=== PATIENT | female | born 1980 | race American Indian/Alaskan Native ===

== ENCOUNTER 2016-09-17 09:09 | Emergency (ER) | payer OTHER, MEDICAID ==
[2016-09-17 09:36] VITALS: BP 138/78; RESP 20; TEMP 97.2; O2SAT 100
--- NOTE | 2016-09-17 09:51 | ED PDOC ---
HPI: Neurologic - General Time Seen by Provider: 09/17/16 09:26 Chief Complaint (Nursing): Weakness/Neurological Deficit Chief Complaint (Provider): Weakness/Neurological Deficit Source: patient Exam Limitations: no limitations - History of Present Illness Timing/Duration: constant Severity: mild Associated Symptoms: denies symptoms Allergies/Adverse Reactions: Allergies No Known Allergies Allergy (Verified 09/17/16 09:31) Home Medications: Ambulatory Orders Alprazolam [Xanax] PRN PRN 03/13/16 Additional Complaint(s): Patient is a 35 year old female who presents to ED for left arm numbness and pain for 1 month. Notes that this morning she woke with chest pain that has since resolved. Patient denies SOB, weakness or dizziness. Notes that if she moves a certain way she feels the numbness and pain in the arm. Patient also reports an intermittent mild headache. Denies nausea or Vomiting. no weakness or numbness in lower extremities. Past Medical History Reviewed: Historical Data, Nursing Documentation, Vital Signs Vital Signs: Last Vital Signs Temp 97.2 F L 09/17/16 09:31 Pulse 72 09/17/16 09:31 Resp 20 09/17/16 09:31 BP 138/78 09/17/16 09:31 Pulse Ox 100 09/17/16 09:31 - Medical History PMH: Anxiety - Surgical History Surgical History: - Family History Family History: States: Unknown Family Hx, Hypertension - Living Arrangements Living Arrangements: With Family - Social History Current smoker - smoking cessation education provided: No Alcohol: None Drugs: Denies - Home Medications Home Medications: Ambulatory Orders Medication Instructions Recorded Alprazolam [Xanax] PRN PRN 03/13/16 - Allergies Allergies/Adverse Reactions: Allergies Allergy/AdvReac Type Severity Reaction Status Date / Time No Known Allergies Allergy Verified 09/17/16 09:31 Review of Systems ROS Statement: Except As Marked, All Systems Reviewed And Found Negative Constitutional: Negative for: Weakness Eyes: Negative for: Vision Change Cardiovascular: Positive for: Chest Pain (resolved ). Negative for: Palpitations, Light Headedness Respiratory: Negative for: Shortness of Breath Gastrointestinal: Negative for: Nausea, Vomiting Musculoskeletal: Positive for: Arm Pain. Negative for: Neck Pain, Back Pain Skin: Negative for: Rash Neurological: Positive for: Numbness (left arm ). Negative for: Headache, Dizziness Physical Exam - Reviewed Nursing Documentation Reviewed: Yes Vital Signs Reviewed: Yes - Physical Exam Appears: Positive for: Non-toxic, No Acute Distress Skin: Positive for: Normal Color, Warm Eye Exam: Positive for: Normal appearance, PERRL Neck: Positive for: Normal, Painless ROM Cardiovascular/Chest: Positive for: Regular Rate, Rhythm, Chest Non Tender. Negative for: Murmur Respiratory: Positive for: Normal Breath Sounds. Negative for: Respiratory Distress Gastrointestinal/Abdominal: Positive for: Normal Exam Back: Positive for: Normal Inspection Extremity: Positive for: Normal ROM. Negative for: Pedal Edema, Calf Tenderness Neurologic/Psych: Positive for: Alert, roof tiler II-XII (grossly intact ), Oriented. Negative for: Motor/Sensory Deficits - Laboratory Results Result Diagrams: 09/17/16 09:57 09/17/16 09:57 - ECG ECG: Positive for: Interpreted By Me ECG Rhythm: Positive for: Normal QRS, Normal ST Segment, Sinus Rhythm. Negative for: ST/T Changes Rate: 73 O2 Sat by Pulse Oximetry: 100 (RA) Pulse Ox Interpretation: Normal Medical Decision Making Medical Decision Making: Time: 939 Initial impression: R/O ACS vs Cervical radiculopathy Initial plan: -- CT-Cervical neck -- CT-head -- CMP -- Troponin -- CBC Time: 1145 CT-cervical neck results reviewed: PROCEDURE: CT Cervical Spine without contrast HISTORY: Neck pain. COMPARISON: None available. TECHNIQUE: Axial computed tomography images were obtained of the cervical spine without the use of intravenous contrast. Coronal and sagittal reformatted images were created and reviewed. Radiation dose: Total exam DLP = 655.63 mGy-cm. This CT exam was performed using one or more of the following dose reduction techniques: Automated exposure control, adjustment of the mA and/or kV according to patient size, and/or use of iterative reconstruction technique. FINDINGS: VERTEBRAE: No fracture. Normal alignment. No destructive bony lesion. Straightening of the cervical spine which may be due to muscle spasm DISCS/SPINAL CANAL/NEURAL FORAMINA: Moderate size osteophyte disc bulging/ herniation complex seen at C5-C6 associated with spinal and neural foraminal narrowing left more than right. Discs heights are grossly preserved. PARASPINAL SOFT TISSUES: Unremarkable. OTHER FINDINGS: None. IMPRESSION: Straightening of the cervical spine which may be due to muscle spasm. Osteophyte disc herniation complex at C5-C6 associated with mild to moderate spinal and neural foraminal narrowing left more than right. If clinically warranted further assessment by MRI may be obtained. CT-head results reviewed: PROCEDURE: CT HEAD WITHOUT CONTRAST. HISTORY: l arm numbness for one month COMPARISON: None available. TECHNIQUE: Axial computed tomography images were obtained through the head/brain without intravenous contrast. Radiation dose: Total exam DLP = 899.08 mGy-cm. This CT exam was performed using one or more of the following dose reduction techniques: Automated exposure control, adjustment of the mA and/or kV according to patient size, and/or use of iterative reconstruction technique. FINDINGS: HEMORRHAGE: No intracranial hemorrhage. BRAIN: No mass effect or edema. No atrophy or chronic microvascular ischemic changes. VENTRICLES: Unremarkable. No hydrocephalus. CALVARIUM: Unremarkable. PARANASAL SINUSES: Unremarkable as visualized. No significant inflammatory changes. MASTOID AIR CELLS: Unremarkable as visualized. No inflammatory changes. OTHER FINDINGS: None. IMPRESSION: Normal CT of the Head. Time: 1150 Discussed results with patient, patient noting bilateral left pain at this time. Denies SOB. Plan: -- Duplex Time: 1330 Patient rpeorts continued pain, requesting pain medicaiton Plan: -- Percocet PO Time: 1400 Bloodwork noted to have high sugar. pt instructed to follow up with pcp for follow up. also instructed to follow up cervical neck findings- neurosurgical referral given and pt urged to follow up without fail pt instructed to return to ed with any worsening symptoms answered all questions pt wants to go home Scribe Attestation: Documented by Monika Umanzor acting as a scribe for Liliana Shaw MD. Scribe Attestation: All medical record entries made by the Scribe were at my direction and personally dictated by me. I have reviewed the chart and agree that the record accurately reflects my personal performance of the history, physical exam, medical decision making, and the department course for this patient. I have also personally directed, reviewed, and agree with the discharge instructions and disposition. Disposition - Clinical Impression Clinical Impression: Arm paresthesia, left - Patient ED Disposition Is Patient to be Admitted: No Counseled Patient/Family Regarding: Studies Performed, Diagnosis, Need For Followup - Disposition Referrals: [facility] [Outside] Jayce Mendoza MD [Staff Provider] - Disposition: Routine/Home Disposition Time: 11:30 Condition: IMPROVED Additional Instructions: follow up with NEUROSURGERY this week for evaluation of CT findings. follow up with primary doctor for elevated blood sugar return to the ED with any worsening or concerning symptoms Instructions: Cervical Disc Herniation (ED)
[2016-09-17 10:03] LABS: BASO # 0.1 K/uL (0.0-0.2); BASO % 0.9 % (0.0-2.0); EOS # 0.1 K/uL (0.0-0.7); EOS % 1.3 % (0.0-4.0); HEMATOCRIT 38.4 % (34.0-47.0); LYMPH % 16.9 % (20.0-40.0); MEAN CELL VOLUME 85.6 fl (81.0-99.0); MEAN CORPUSCULAR HEMOGLOBIN 27.8 pg (27.0-31.0); MEAN CORPUSCULAR HGB CONC 32.5 g/dL (33.0-37.0); MEAN PLATELET VOLUME 8.4 fl (7.2-11.7); MONO # 0.5 K/uL (0.0-0.8); MONO % 7.8 % (0.0-10.0); NEUT # 4.4 K/uL (1.8-7.0); NEUT % 73.1 % (50.0-75.0); RED CELL DISTRIBUTION WIDTH 13.9 % (11.5-14.5)
[2016-09-17 10:04] VITALS: PULSE 73
[2016-09-17 10:38] LABS: ALB/GLOB RATIO 1.1 (1.0-2.1); ALKALINE PHOSPHATASE 104 U/L (38-126); ALT/SGPT 28 U/L (9-52); AST/SGOT 18 U/L (14-36); BILIRUBIN,TOTAL 0.4 mg/dl (0.2-1.3); BLOOD UREA NITROGEN 13 mg/dl (7-17); CALCIUM 9.6 mg/dL (8.4-10.2); CARBON DIOXIDE 24 mmol/L (22-30); CHLORIDE 103 mmol/L (98-107); GFR AFRICAN-AMERICAN > 60; GLUCOSE,RANDOM 174 mg/dL (65-105); POTASSIUM 4.1 MMOL/L (3.6-5.0); SODIUM 138 mmol/l (132-148); TOTAL PROTEIN 7.7 G/DL (6.3-8.2)
--- NOTE | 2016-09-17 11:18 | CT ---
PROCEDURE: CT HEAD WITHOUT CONTRAST. HISTORY: l arm numbness for one month COMPARISON: None available. TECHNIQUE: Axial computed tomography images were obtained through the head/brain without intravenous contrast. Radiation dose: Total exam DLP = 899.08 mGy-cm. This CT exam was performed using one or more of the following dose reduction techniques: Automated exposure control, adjustment of the mA and/or kV according to patient size, and/or use of iterative reconstruction technique. FINDINGS: HEMORRHAGE: No intracranial hemorrhage. BRAIN: No mass effect or edema. No atrophy or chronic microvascular ischemic changes. VENTRICLES: Unremarkable. No hydrocephalus. CALVARIUM: Unremarkable. PARANASAL SINUSES: Unremarkable as visualized. No significant inflammatory changes. MASTOID AIR CELLS: Unremarkable as visualized. No inflammatory changes. OTHER FINDINGS: None. IMPRESSION: Normal CT of the Head.
--- NOTE | 2016-09-17 11:31 | CT ---
PROCEDURE: CT Cervical Spine without contrast HISTORY: Neck pain. COMPARISON: None available. TECHNIQUE: Axial computed tomography images were obtained of the cervical spine without the use of intravenous contrast. Coronal and sagittal reformatted images were created and reviewed. Radiation dose: Total exam DLP = 655.63 mGy-cm. This CT exam was performed using one or more of the following dose reduction techniques: Automated exposure control, adjustment of the mA and/or kV according to patient size, and/or use of iterative reconstruction technique. FINDINGS: VERTEBRAE: No fracture. Normal alignment. No destructive bony lesion. Straightening of the cervical spine which may be due to muscle spasm DISCS/SPINAL CANAL/NEURAL FORAMINA: Moderate size osteophyte disc bulging/ herniation complex seen at C5-C6 associated with spinal and neural foraminal narrowing left more than right. Discs heights are grossly preserved. PARASPINAL SOFT TISSUES: Unremarkable. OTHER FINDINGS: None. IMPRESSION: Straightening of the cervical spine which may be due to muscle spasm. Osteophyte disc herniation complex at C5-C6 associated with mild to moderate spinal and neural foraminal narrowing left more than right. If clinically warranted further assessment by MRI may be obtained.
[2016-09-17] MEDS ORDERED: Oxycodone/Acetaminophen 5/325 mg Tab ONE (13:27)
[2016-09-17] MEDS ORDERED: Oxycodone/Acetaminophen 5/325 mg Tab PO ONE (13:32)
--- NOTE | 2016-09-17 14:16 | US ---
PROCEDURE: Bilateral lower extremity venous duplex Doppler. HISTORY: leg pain COMPARISON: Comparison is made to the previous study dated 11/07/2014 TECHNIQUE: Bilateral common femoral, superficial femoral, popliteal and posterior tibial veins were evaluated. Flow was assessed with color Doppler, compressibility, assessment of phasic flow and augmentation response. FINDINGS: COMMON FEMORAL VEIN: Right CFV: Unremarkable. Left CFV: Unremarkable. SUPERFICIAL FEMORAL VEIN: Right SFV: Unremarkable. Left SFV: Unremarkable. POPLITEAL VEIN: Right Popliteal: Unremarkable. Left Popliteal: Unremarkable. POSTERIOR TIBIAL VEIN: Right PTV: Unremarkable. Left PTV: Unremarkable. OTHER FINDINGS: Mildly enlarged right groin lymph nodes. IMPRESSION: No evidence of deep venous thrombosis. Mildly enlarged right groin lymph nodes.
== END 2016-09-17 14:23 | disposition home or self-care (01) ==
LOC: H.ER 09:09
DX: R20.2 Paresthesia of skin (principal); R07.89 Other chest pain; F41.9 Anxiety disorder, unspecified; M50.222 Other cervical disc displacement at C5-C6 level

== ENCOUNTER 2016-10-14 13:37 | Emergency (ER) | payer OTHER, MEDICAID ==
[2016-10-14 13:42] VITALS: BP 121/70; PULSE 76; RESP 16; TEMP 98.2; O2SAT 100
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
== END 2016-10-14 16:52 | disposition home or self-care (01) ==
LOC: H.ER 13:37
DX: S13.4XXA Sprain of ligaments of cervical spine, initial encounter (principal); S20.219A Contusion of unspecified front wall of thorax, initial encounter; V43.52XA Car driver injured in collision with other type car in traffic accident, initial encounter; Y92.410 Unspecified street and highway as the place of occurrence of the external cause

== ENCOUNTER 2016-10-19 13:03 | Emergency (ER) | payer OTHER, MEDICAID ==
[2016-10-19 13:13] VITALS: BP 144/84; PULSE 88; RESP 19; TEMP 98.1; O2SAT 100
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
[2016-10-19] MEDS ORDERED: Oxycodone/Acetaminophen 5/325 mg Tab PO STA (14:58)
[2016-10-19] MEDS ORDERED: Oxycodone/Acetaminophen 5/325 mg Tab ONE (15:03)
== END 2016-10-19 15:30 | disposition home or self-care (01) ==
LOC: H.ER 13:03
DX: M54.2 Cervicalgia (principal); R20.0 Anesthesia of skin; E11.9 Type 2 diabetes mellitus without complications; F41.9 Anxiety disorder, unspecified; R20.9 Unspecified disturbances of skin sensation; M54.9 Dorsalgia, unspecified

== ENCOUNTER 2016-12-28 08:39 | Emergency (ER) | payer OTHER, MEDICAID ==
[2016-12-28 08:51] VITALS: BP 135/74; PULSE 95; TEMP 97
[2016-12-28 08:52] VITALS: BMI 31.3
[2016-12-28 08:57] VITALS: O2SAT 98
--- NOTE | 2016-12-28 11:19 | ED PDOC ---
HPI: CCC, URI, Sore Throat Time Seen by Provider: 12/28/16 09:08 Chief Complaint (Nursing): ENT Problem Chief Complaint (Provider): ENT Problem History Per: Patient History/Exam Limitations: no limitations Have you had recent travel within the past 21 days to any of the following countries: [place], [place], [place] or [place]?: Yes Onset/Duration Of Symptoms: Days (x14) Current Symptoms Are (Timing): Still Present Additional Complaint(s): Lydia Donald is a 36 year old female with a past medical history of diabetes and anxiety presenting to the ED with several medical complaints including sore throat beginning yesterday, several episodes of vomiting and diarrhea occurring upon her return from a trip to [place] and [facility] 2 weeks prior to arrival, and a bump noted to her right lateral vaginal area. The patient denies urinary symptoms, fever, back pain, rash, or vaginal pain. She is also requesting for thyroid testing. PMD: None provided Past Medical History Reviewed: Historical Data, Nursing Documentation, Vital Signs Vital Signs: Last Vital Signs Temp 97 F L 12/28/16 08:50 Pulse 95 H 12/28/16 08:50 Resp BP 135/74 12/28/16 08:50 Pulse Ox 98 12/28/16 08:55 - Medical History PMH: Anxiety, Diabetes - Surgical History Surgical History: - Family History Family History: States: Unknown Family Hx, Hypertension - Social History Current smoker - smoking cessation education provided: No Ex-Smoker (has not smoked in the last 12 months): No Alcohol: Other Drugs: Denies - Home Medications Home Medications: Ambulatory Orders Medication Instructions Recorded Alprazolam [Xanax] PRN PRN 03/13/16 Naproxen 1 tab PO BID PRN #14 tab 10/14/16 Non-Formulary 1 ea IN DAILY #1 ea 10/14/16 diaZEpam [Valium] 5 mg PO Q6 PRN #4 tab 10/14/16 Loperamide [Loperamide HCl] 2 mg PO QID PRN #12 cap 12/28/16 Mupirocin 2% Cream [Bactroban 30 applic EXT BID #1 tube 12/28/16 Cream] Ondansetron [Zofran] 4 mg PO Q6H PRN #10 tab 12/28/16 - Allergies Allergies/Adverse Reactions: Allergies Allergy/AdvReac Type Severity Reaction Status Date / Time No Known Allergies Allergy Verified 12/28/16 08:55 Review of Systems ROS Statement: Except As Marked, All Systems Reviewed And Found Negative ENT: Positive for: Throat Pain (sore throat ) Gastrointestinal: Positive for: Vomiting, Diarrhea Physical Exam - Reviewed Nursing Documentation Reviewed: Yes Vital Signs Reviewed: Yes - Physical Exam Appears: Positive for: Well, Non-toxic, No Acute Distress Head Exam: Positive for: ATRAUMATIC, NORMAL INSPECTION, NORMOCEPHALIC Skin: Positive for: Normal Color, Warm, DRY Eye Exam: Positive for: EOMI, Normal appearance, PERRL ENT: Positive for: Normal ENT Inspection, Pharynx Is (normal), TM Is/Are ( normal ) Neck: Positive for: Normal, Painless ROM Cardiovascular/Chest: Positive for: Regular Rate, Rhythm Respiratory: Positive for: CNT, Normal Breath Sounds Gastrointestinal/Abdominal: Positive for: Normal Exam, Bowel Sounds, Soft. Negative for: Tenderness Pelvic Exam: Positive for: External Exam Normal (small area foliculitis seen at 7:00 lateral to labia majora ), Other (External exam performed with [employer]) Back: Positive for: Normal Inspection Extremity: Positive for: Normal ROM Neurologic/Psych: Positive for: Alert, Oriented - ECG O2 Sat by Pulse Oximetry: 98 (RA) Pulse Ox Interpretation: Normal Medical Decision Making Medical Decision Makin:08 Impression: ENT/Female genitourinary Plan: ED urine ED urine dipstick Throat culture Rapid Strep Group Pt could not provide stool sample in ER. Recommend thyroid screening with PMD not with emergent medical condition. Throat swab resulted negative for strep. Confirmatory throat culture sent. Discussed with pt to f/u with [facility] in 4-5 days for re-evaluation for folliculitis and with PMD for thyroid testing. Scribe Attestation: Documented by Britni Flores, acting as a scribe for Foreign Gomez DO. Provider Scribe Attestation: All medical record entries made by the Scribe were at my direction and personally dictated by me. I have reviewed the chart and agree that the record accurately reflects my personal performance of the history, physical exam, medical decision making, and the department course for this patient. I have also personally directed, reviewed, and agree with the discharge instructions and disposition. Disposition - Clinical Impression Clinical Impression: Sore throat, Diarrhea, Folliculitis - Disposition Referrals: Baron Mcclendon MD [Family Provider] - Gayathri Morgan MD [Staff Provider] - Disposition: Routine/Home Disposition Time: 11:03 Condition: STABLE Additional Instructions: See [facility] doctor in 4-7 days for repeat evaluation. Use antibiotic cream 2x daily for 5 days. Bring stool sample to PMD if diarrhea persists. Return to ER for any worse or new symptoms Take medications as needed/directed. Discuss thyroid testing with your primary doctor. Prescriptions: Loperamide [Loperamide HCl] 2 mg PO QID PRN #12 cap PRN Reason: Diarrhea Mupirocin 2% Cream [Bactroban Cream] 30 applic EXT BID #1 tube Ondansetron [Zofran] 4 mg PO Q6H PRN #10 tab PRN Reason: Nausea/Vomiting Instructions: Traveler's Diarrhea (ED), Acute Nausea and Vomiting (ED), Folliculitis (ED) Forms: [facility] (Korean), [facility] ED School/Work Excuse
== END 2016-12-28 11:10 | disposition home or self-care (01) ==
LOC: H.ER 08:39
DX: L73.9 Follicular disorder, unspecified (principal); J02.9 Acute pharyngitis, unspecified; R19.7 Diarrhea, unspecified; E11.9 Type 2 diabetes mellitus without complications

== ENCOUNTER 2017-03-06 14:24 | Emergency (ER) | payer OTHER, MEDICAID ==
[2017-03-06 14:24] VITALS: BMI 31.3
[2017-03-06] MEDS ORDERED: Sodium Chloride 0.9% 1,000 ML IV STA (15:19)
--- NOTE | 2017-03-06 15:36 | ED PDOC ---
HPI:Nausea, Vomiting, Diarrhea Time Seen by Provider: 03/06/17 15:07 Chief Complaint (Nursing): GI Problem Chief Complaint (Provider): Vomiting History Per: Patient History/Exam Limitations: no limitations Onset/Duration Of Symptoms: Days (x1) Current Symptoms Are (Timing): Still Present Associated Symptoms: Chills, Vomiting Additional Complaint(s): Lydia Donald, a 36 year old female, with a past medical history of diabetes presents to the ED complaining of vomiting. The patient reports that she started vomiting around 3am after being out for the evening. She states that she was drinking and after she felt very bad. The patient reports that she barely remembers what happened but knows that she only lane one drink and is concerned that she may have been slipped something. The patient further states that she woke up around noon and continued to vomit and noticed that drops of blood mixed in with the vomitus. She reports that she currently feels dizzy, shaky and tired but cannot sleep. The patient states that her boyfriend told her that she was very aggressive and angry last night and that when she woke up this morning her pupils were dilated. PMD: Baron Calhoun Past Medical History Reviewed: Historical Data, Nursing Documentation, Vital Signs Vital Signs: Last Vital Signs Temp 98.2 F 03/06/17 14:37 Pulse 80 03/06/17 14:37 Resp 16 03/06/17 14:37 BP 167/88 H 03/06/17 14:37 Pulse Ox 100 03/06/17 14:37 - Medical History PMH: Anxiety, Diabetes - Surgical History Surgical History: - Family History Family History: States: Unknown Family Hx, Diabetes, Hypertension - Living Arrangements Living Arrangements: With Friends/Others - Social History Current smoker - smoking cessation education provided: No Ex-Smoker (has not smoked in the last 12 months): No Alcohol: Occasional Drugs: Denies - Home Medications Home Medications: Ambulatory Orders Medication Instructions Recorded Alprazolam [Xanax] PRN PRN 03/13/16 Naproxen 1 tab PO BID PRN #14 tab 10/14/16 Non-Formulary 1 ea IN DAILY #1 ea 10/14/16 diaZEpam [Valium] 5 mg PO Q6 PRN #4 tab 10/14/16 Loperamide [Loperamide HCl] 2 mg PO QID PRN #12 cap 12/28/16 Mupirocin 2% Cream [Bactroban 30 applic EXT BID #1 tube 12/28/16 Cream] Ondansetron [Zofran] 4 mg PO Q6H PRN #10 tab 12/28/16 Omeprazole Magnesium [Prilosec Otc] 20 mg PO DAILY #30 tcp 03/06/17 Ondansetron ODT [Zofran ODT] 1 odt PO Q6 PRN #20 odt 03/06/17 - Allergies Allergies/Adverse Reactions: Allergies Allergy/AdvReac Type Severity Reaction Status Date / Time No Known Allergies Allergy Verified 03/06/17 14:37 Review of Systems ROS Statement: Except As Marked, All Systems Reviewed And Found Negative (and as per HPI) Constitutional: Positive for: Weakness, Malaise, Other (shaky, tired) Gastrointestinal: Positive for: Nausea, Vomiting, Hematemesis. Negative for: Abdominal Pain Neurological: Positive for: Confusion, Dizziness Physical Exam - Reviewed Nursing Documentation Reviewed: Yes Vital Signs Reviewed: Yes - Physical Exam Appears: Positive for: Non-toxic, No Acute Distress Head Exam: Positive for: ATRAUMATIC, NORMOCEPHALIC Skin: Positive for: Warm, Dry Eye Exam: Positive for: EOMI, PERRL ENT: Positive for: Pharynx Is (clear), Other (mucus membranes moist) Neck: Positive for: Painless ROM, Supple Cardiovascular/Chest: Positive for: Regular Rate, Rhythm, Chest Non Tender. Negative for: Murmur Respiratory: Positive for: Normal Breath Sounds. Negative for: Wheezing Gastrointestinal/Abdominal: Positive for: Bowel Sounds, Soft. Negative for: Tenderness, Mass, Distended Back: Positive for: Normal Inspection. Negative for: Decreased ROM Extremity: Positive for: Normal ROM. Negative for: Deformity Lymphatic: Negative for: Adenopathy Neurologic/Psych: Positive for: Alert, metal framer II-XII (grossly intact), Oriented (x3 ), Mood/Affect (mildly anxious). Negative for: Motor/Sensory Deficits - Laboratory Results Result Diagrams: 03/06/17 15:51 03/06/17 15:51 - ECG O2 Sat by Pulse Oximetry: 100 (RA) Pulse Ox Interpretation: Normal Medical Decision Making Medical Decision Makin Initial Impression 36 y/o female presenting with vomiting and shakiness Differential: Drug intoxication, Alcohol Intoxication, Electrolyte Abnormality, Viral Syndrome, Alcoholic Gastritis, Anemia, Dehydration Initial Plan: * Type and Screen * EKG * Alcohol Serum * CMP * Drug Screen * Lipase * Magnesium * Phosphorous * Thyroid Stimulation * Upreg * Udip * CBC * Partial Thromboplastin * Prothrombin Time * NS 1000ml IV 1000mls/hr * Protonix 40mg IVP * Zofran inj 8mg IV * Dextrose 500ml IV 100mls/hr * Reevaluation 1540 EKG performed: * Normal sinus rhythm at 76bpm * Normal QRS * No ST segment abnormalities 1700 Pt feeling better. Tolerated sandwich in ER. DW pt findings and plan of care. Stable for DC home. Rest, fluids, bland diet. Scribe Attestation Documented by Rafia Miller acting as a scribe forMD. Provider Attestation All medical record entries made by the Scribe were at my direction and personally dictated by me. I have reviewed the chart and agree that the record accurately reflects my personal performance of the history, physical exam, medical decision making, and the department course for this patient. I have also personally directed, reviewed, and agree with the discharge instructions and disposition. Disposition - Clinical Impression Clinical Impression: Hematemesis Counseled Patient/Family Regarding: Studies Performed, Diagnosis, Need For Followup, Rx Given - Disposition Referrals: Baron Mcclendon MD [Family Provider] - (FOLLOW UP ON WEDNESDAY TO SEE HOW YOU ARE DOING) Disposition: Routine/Home Disposition Time: 17:00 Condition: IMPROVED Prescriptions: Omeprazole Magnesium [Prilosec Otc] 20 mg PO DAILY #30 tcp Ondansetron ODT [Zofran ODT] 1 odt PO Q6 PRN #20 odt PRN Reason: Nausea/Vomiting Instructions: Acute Nausea and Vomiting (ED), Gastritis (ED)
[2017-03-06 16:04] LABS: BASO # 0.1 K/uL (0.0-0.2); BASO % 0.9 % (0.0-2.0); EOS # 0.1 K/uL (0.0-0.7); EOS % 1.7 % (0.0-4.0); LYMPH % 16.6 % (20.0-40.0); MEAN CORPUSCULAR HEMOGLOBIN 28.3 pg (27.0-31.0); MEAN CORPUSCULAR HGB CONC 32.9 g/dL (33.0-37.0); MEAN PLATELET VOLUME 8.6 fl (7.2-11.7); MONO # 0.7 K/uL (0.0-0.8); MONO % 11.5 % (0.0-10.0); NEUT # 4.2 K/uL (1.8-7.0); NEUT % 69.3 % (50.0-75.0); NRBC % 0.3 % (0.0-0.0); RED CELL DISTRIBUTION WIDTH 14.4 % (11.5-14.5); WHITE BLOOD COUNT 6.1 K/uL (4.8-10.8)
[2017-03-06 16:29] LABS: ALB/GLOB RATIO 1.4 (1.0-2.1); ALCOHOL SERUM < 10 mg/dl (0-10); ALKALINE PHOSPHATASE 91 U/L (38-126); ALT/SGPT 46 U/L (9-52); AST/SGOT 29 U/L (14-36); BILIRUBIN,TOTAL 0.3 mg/dl (0.2-1.3); BLOOD UREA NITROGEN 9 mg/dl (7-17); CALCIUM 9.1 mg/dL (8.4-10.2); CARBON DIOXIDE 25 mmol/L (22-30); CHLORIDE 104 mmol/L (98-107); GFR AFRICAN-AMERICAN > 60; GLUCOSE,RANDOM 181 mg/dL (65-105); LIPASE 48 U/L (23-300); MAGNESIUM 1.8 MG/DL (1.6-2.3); PHOSPHOROUS 3.6 mg/dl (2.5-4.5); SODIUM 143 mmol/l (132-148); TOTAL PROTEIN 7.8 G/DL (6.3-8.2)
[2017-03-06 16:35] LABS: PARTIAL THROMBOPLASTIN TIME 26.8 Seconds (25.6-37.1)
[2017-03-06 16:59] LABS: THYROID STIMULATING HORMONE 1.22 mIU/ML (0.46-4.68)
[2017-03-06 17:49] LABS: PARTIAL THROMBOPLASTIN TIME 30.5 Seconds (25.6-37.1)
[2017-03-06 18:02] VITALS: BP 128/78; PULSE 78; RESP 19; TEMP 97; O2SAT 98
--- NOTE | 2017-03-07 08:59 | CARD ---
APPROVED REPORT EKG Measurement Heart [id number] <Conclusion> Normal sinus rhythm Nonspecific ST abnormality Abnormal ECG
== END 2017-03-06 18:02 | disposition home or self-care (01) ==
LOC: H.ER 14:24
DX: R68.83 Chills (without fever) (principal); K92.0 Hematemesis; E11.9 Type 2 diabetes mellitus without complications; Z87.891 Personal history of nicotine dependence; Z86.59 Personal history of other mental and behavioral disorders
CPT/HCPCS: 80053; 80320; 80324; 80345; 80346; 80349; 80353; 80358; 80361; 81025; 82948; 83690; 83735; 83992; 84100; 84443; 85025; 85610; 85730; 93005; 96374; 99283; C9113; J2405; J7040

== ENCOUNTER 2017-04-28 01:19 | Observation (INO) | payer OTHER, MEDICAID ==
[2017-04-28 01:19] VITALS: BMI 31.3
--- NOTE | 2017-04-28 02:53 | ED PDOC ---
HPI: Chest Pain Time Seen by Provider: 04/28/17 01:36 Chief Complaint (Nursing): Chest Pain Chief Complaint (Provider): chest pain History Per: Patient History/Exam Limitations: no limitations Onset/Duration Of Symptoms: Hrs, Sudden Onset, Persistent Current Symptoms Are (Timing): Still Present Quality: Sharp, Pressure, Squeezing Associated Symptoms: Diaphoresis. denies: Nausea, Dyspnea, Syncope Modifying Factors: None Exacerbating Factors: Deep Breathing, Exertion Alleviating Factors: Rest Additional Complaint(s): 36yo F in ED for eval of chest pain started couple of hours to arrival stats that pain is midesternal with radiation to left arm and back with diaphoresis lasting intermittent increasing in severity of pain from 4/10 to now 8/10 and longer duration form 1 mint to 5 mins with associated dizziness. PMHx: HTN no smoking. - Risk Factors PE Risk Factors: Neg: Extremity Immobilization/Fx, Decreased Mobilty /Activity, Recent Major Surgery, Recent Hospitalization, Active Cancer, Previous DVT, Previous PE, CHF, Venous Stasis, Estrogen Usage, , Post-, Recent Major Trauma TAD Risk Factors: Neg: Hypertension, Connective Tissue Disease, Marfan's Syndrome, Dea- Danlos Syndrome, Aortic Valve Disease, Active , Tumer's Syndrome, First Degree Relative With TAD, Sudden Onset Of Pain, Migration Of Pain, New Neurologic Symptoms Past Medical History Reviewed: Historical Data, Nursing Documentation, Vital Signs Vital Signs: Last Vital Signs Temp 98.0 F 04/28/17 01:31 Pulse 92 H 04/28/17 01:31 Resp 17 04/28/17 01:31 BP 146/92 H 04/28/17 01:31 Pulse Ox 99 04/28/17 03:06 - Medical History PMH: Anxiety, Diabetes - Surgical History Surgical History: - Family History Family History: States: Unknown Family Hx, Diabetes, Hypertension - Home Medications Home Medications: Ambulatory Orders Medication Instructions Recorded metFORMIN [glucOPHAGE] 500 mg PO BID 04/28/17 - Allergies Allergies/Adverse Reactions: Allergies Allergy/AdvReac Type Severity Reaction Status Date / Time No Known Allergies Allergy Verified 03/06/17 14:37 JESSICA Risk Score for UA/NSTEMI - JESSICA Risk Score Age > 64: NO 3 or more CAD Risk Factors: NO Known CAD (Stenosis greater than 50%): NO Aspirin use in past 7 days: NO Severe Angina: YES EKG ST changes greater than 0.5mm: YES Positive Cardiac Marker: NO JESSICA Score: 2 Risk %: 8% Curb-65 Severity Score - CURB-65 Severity Score Confusion: No Bun >19mg/dl (>7mmol/L): No Respiratory Rate greater than/equal to 30: No Systolic BP <90 or Diastolic BP less than/equal 60mmHg: No Age >64: No Curb-65 Score: 0 Percentage 30-day mortality: 0.6% Wells Criteria for PE - Wells Criteria for Pulmonary Embolism Clinical Signs and Symptoms of DVT: No P.E is #1 Diagnosis, or Equally Likely: No Heart Rate >100: No Immobilization at least 3 days;Surgery previous 4 weeks: No Previous, objectively diagnosed PE or DVT: No Hemoptysis: No Malignancy w/treatment within 6 months, or palliative: No Total Score: 0 Review of Systems ROS Statement: Except As Marked, All Systems Reviewed And Found Negative Cardiovascular: Positive for: Chest Pain. Negative for: Palpitations, Orthopnea , Paroxysmal Noc. Dyspnea, Edema, Light Headedness Physical Exam - Reviewed Nursing Documentation Reviewed: Yes Vital Signs Reviewed: Yes - Physical Exam Appears: Positive for: Well, Non-toxic, No Acute Distress Skin: Positive for: Normal Color, Warm, DRY Neck: Positive for: Painless ROM Cardiovascular/Chest: Positive for: Regular Rate, Rhythm, Chest Non Tender. Negative for: Edema, Gallop, JVD, Murmur, Bradycardia, Tachycardia, Ectopy, Friction Rub, Irregularly Irregular Respiratory: Positive for: CNT, Normal Breath Sounds Gastrointestinal/Abdominal: Positive for: Normal Exam, Bowel Sounds, Soft. Negative for: Tenderness Extremity: Positive for: Normal ROM Neurologic/Psych: Positive for: Alert, Oriented - Laboratory Results Result Diagrams: 04/28/17 01:36 04/28/17 01:36 - ECG ECG Rhythm: Positive for: Normal QRS, Sinus Rhythm, Nonspecific Changes O2 Sat by Pulse Oximetry: 99 - Radiology X-Ray: Interpreted by Tx X-Ray Interpretation: No Acute Disease Medical Decision Making Medical Decision Making: Pt with chest pain and will need admission for repeat labs and EKG due to risk factors. pain improved in ER from 12/24 to 10/24 and pt now more comfortable. [facility] who is covering for MD Radha 04/28/17 04/28/17 02:46 01:37 POC Glucose (mg/dL) 269 H Urine Color Straw Urine Clarity Slighty-cloudy Urine pH 6.0 Ur Specific [place] < 1.005 Urine Protein Negative Urine Glucose (UA) 50 Urine Ketones Negative Urine Blood Negative Urine Nitrate Negative Urine Bilirubin Negative Urine Urobilinogen 0.2-1.0 Ur Leukocyte Esterase Neg Urine RBC (Auto) 1 Urine Microscopic WBC 2 Ur Squamous Epith Cells 6 H Urine Bacteria Rare Disposition - Clinical Impression Clinical Impression: Chest pain - Patient ED Disposition Is Patient to be Admitted: Yes - Disposition Referrals: Baron Mcclendon MD [Primary Care Provider] - Disposition Time: 03:50 Condition: STABLE Forms: [employer] (Bahamian) - Pt Status Changed To: Hospital Disposition Of: Observation
[2017-04-28 02:59] LABS: RBC URINE 1 /hpf (0-3); URINE BACTERIA RARE (<OCC); URINE BILIRUBIN NEGATIVE (NEGATIVE); URINE BLOOD NEGATIVE (NEGATIVE); URINE COLOR STRAW (YELLOW); URINE GLUCOSE (UA) 50 mg/dL (Normal); URINE KETONE NEGATIVE (NEGATIVE); URINE LEUKOCYTE ESTERASE NEG Leu/uL (Negative); URINE PROTEIN NEGATIVE (NEGATIVE); URINE UROBILINOGEN 0.2-1.0 mg/dL (0.2-1.0); WBC URINE 2 /hpf (0-5)
[2017-04-28 03:24] LABS: BASO # 0.1 K/uL (0.0-0.2); BASO % 1.1 % (0.0-2.0); EOS # 0.1 K/uL (0.0-0.7); EOS % 1.5 % (0.0-4.0); HEMATOCRIT 36.5 % (34.0-47.0); LYMPH # 0.7 K/uL (1.0-4.3); MEAN CELL VOLUME 85.6 fl (81.0-99.0); MEAN CORPUSCULAR HEMOGLOBIN 28.1 pg (27.0-31.0); MEAN CORPUSCULAR HGB CONC 32.8 g/dL (33.0-37.0); MEAN PLATELET VOLUME 9.1 fl (7.2-11.7); MONO # 0.3 K/uL (0.0-0.8); MONO % 6.3 % (0.0-10.0); NEUT # 3.4 K/uL (1.8-7.0); NEUT % 75.1 % (50.0-75.0); NRBC % 0.1 % (0.0-0.0); WHITE BLOOD COUNT 4.5 K/uL (4.8-10.8)
[2017-04-28 03:31] LABS: ALB/GLOB RATIO 1.3 (1.0-2.1); ALKALINE PHOSPHATASE 90 U/L (38-126); ALT/SGPT 68 U/L (9-52); AST/SGOT 40 U/L (14-36); BILIRUBIN,TOTAL 0.4 mg/dl (0.2-1.3); BLOOD UREA NITROGEN 15 mg/dl (7-17); CALCIUM 8.8 mg/dL (8.4-10.2); CARBON DIOXIDE 21 mmol/L (22-30); CHLORIDE 105 mmol/L (98-107); GFR AFRICAN-AMERICAN > 60; GLUCOSE,RANDOM 231 mg/dL (65-105); POTASSIUM 3.7 MMOL/L (3.6-5.0); SODIUM 137 mmol/l (132-148); TOTAL PROTEIN 7.2 G/DL (6.3-8.2)
--- NOTE | 2017-04-28 05:02 | CP.PCM.HP ---
<Laurel Mayers - Last Filed: 04/28/17 05:26> History of Present Illness - History of Present Illness History of Present Illness: 36 year old female with PMH of prediabetes and anxiety presented with complaints of chest pain, tightness, and pressure that began around 18:00. She has never had symptoms like this in the past. She does not think that his is reflux or anxiety because 'she know's what that feel's like.' Pain was described as chest tightness and cramping sensation, followed by pressure and dyspnea. Also with subsequent back pain. She denies recent illness or travel. She was brought to the ED by her boyfriend. She was given sublingual nitroglycerin with mild improvement of her symptoms. No history of heart disease, [place], CVA, HLD, HTN, thyroid disease, esophageal spasm. ROS: She denies fevers, chills, headaches, dizziness, nausea, vomiting, diarrhea , constipation, pedal edema. PMH: Prediabetes, anxiety Medications: Metformin 500mg PO BID, xanax PRN Allergies: NKDA Social Hx: no tobacco use, +etoh use Surgical Hx: ankle surgery, x 1 TACK WELDER: LMP: 04/02/17, no OCPs Family Hx: mother w/ heart murmur Present on Admission - Present on Admission Any Indicators Present on Admission: No Past Patient History - Infectious Disease Hx of Infectious Diseases: None - Past Social History Smoking Status: Never Smoked Alcohol: Social Drugs: Denies - ENDOCRINE/METABOLIC Hx Endocrine Disorders: Yes - PSYCHIATRIC Hx Anxiety: Yes - SURGICAL HISTORY Hx Surgeries: Yes Hx Section: Yes Other/Comment: left foot - ANESTHESIA Hx Anesthesia: Yes Hx Anesthesia Reactions: No Meds Allergies/Adverse Reactions: Allergies Allergy/AdvReac Type Severity Reaction Status Date / Time No Known Allergies Allergy Verified 03/06/17 14:37 Physical Exam - Constitutional Appears: Non-toxic, No Acute Distress - Head Exam Head Exam: ATRAUMATIC, NORMAL INSPECTION, NORMOCEPHALIC - Eye Exam Eye Exam: EOMI, Normal appearance, PERRL - ENT Exam ENT Exam: Mucous Membranes Moist, Normal Exam - Neck Exam Neck exam: Positive for: Thyromegaly - Respiratory Exam Respiratory Exam: Clear to Auscultation Bilateral, NORMAL BREATHING PATTERN. absent: Accessory Muscle Use, Prolonged Expiratory Phase, Rales, Rhonchi, Wheezes - Cardiovascular Exam Cardiovascular Exam: REGULAR RHYTHM, +S1, +S2. absent: Bradycardia, Tachycardia - GI/Abdominal Exam GI & Abdominal Exam: Distended, Normal Bowel Sounds, Soft. absent: Guarding, Tenderness - Extremities Exam Extremities exam: Positive for: normal inspection, tenderness. Negative for: pedal edema - Back Exam Back exam: NORMAL INSPECTION - Neurological Exam Neurological exam: Alert, CN II-XII Intact, Oriented x3 - Psychiatric Exam Psychiatric exam: Anxious - Skin Skin Exam: Dry, Intact, Normal Color, Warm Results - Vital Signs Recent Vital Signs: Last Vital Signs Temp 98.3 F 04/28/17 04:42 Pulse 87 04/28/17 04:42 Resp 16 04/28/17 04:42 BP 132/83 04/28/17 04:42 Pulse Ox 100 04/28/17 04:42 - Labs Result Diagrams: 04/28/17 01:36 04/28/17 01:36 Labs: Laboratory Results - last 24 hr 04/28/17 04/28/17 04/28/17 01:36 01:36 01:37 WBC 4.5 L RBC 4.26 Hgb 12.0 Hct 36.5 MCV 85.6 MCH 28.1 MCHC 32.8 L RDW 14.0 Plt Count 190 MPV 9.1 Neut % (Auto) 75.1 H Lymph % (Auto) 16.0 L [place] % (Auto) 6.3 Eos % (Auto) 1.5 Baso % (Auto) 1.1 Neut # 3.4 Lymph # 0.7 L [place] # 0.3 Eos # 0.1 Baso # 0.1 Sodium 137 Potassium 3.7 Chloride 105 Carbon Dioxide 21 L Anion Gap 15 BUN 15 Creatinine 0.5 L Est GFR ( Amer) > 60 Est GFR (Non-Af Amer) > 60 POC Glucose (mg/dL) 269 H Random Glucose 231 H Calcium 8.8 Total Bilirubin 0.4 AST 40 H D ALT 68 H D Alkaline Phosphatase 90 Troponin I < 0.0120 Total Protein 7.2 Albumin 4.0 Globulin 3.2 Albumin/Globulin Ratio 1.3 Urine Color Urine Clarity Urine pH Ur Specific Dixon Urine Protein Urine Glucose (UA) Urine Ketones Urine Blood Urine Nitrate Urine Bilirubin Urine Urobilinogen Ur Leukocyte Esterase Urine RBC (Auto) Urine Microscopic WBC Ur Squamous Epith Cells Urine Bacteria 04/28/17 02:46 WBC RBC Hgb Hct MCV MCH MCHC RDW Plt Count MPV Neut % (Auto) Lymph % (Auto) Raw[place]ins % (Auto) Eos % (Auto) Baso % (Auto) Neut # Lymph # Raw[place]ins # Eos # Baso # Sodium Potassium Chloride Carbon Dioxide Anion Gap BUN Creatinine Est GFR ( Amer) Est GFR (Non-Af Amer) POC Glucose (mg/dL) Random Glucose Calcium Total Bilirubin AST ALT Alkaline Phosphatase Troponin I Total Protein Albumin Globulin Albumin/Globulin Ratio Urine Color Straw Urine Clarity Slighty-cloudy Urine pH 6.0 Ur Specific Dixon < 1.005 Urine Protein Negative Urine Glucose (UA) 50 Urine Ketones Negative Urine Blood Negative Urine Nitrate Negative Urine Bilirubin Negative Urine Urobilinogen 0.2-1.0 Ur Leukocyte Esterase Neg Urine RBC (Auto) 1 Urine Microscopic WBC 2 Ur Squamous Epith Cells 6 H Urine Bacteria Rare Assessment & Plan (1) Chest pain Assessment and Plan: 36 year old female presented with chest pain, tightness and pressure admitted for rule out ACS. No longer tachycardic, BP WNL. EKG reviewed, Troponin negative x 1. no recent travel, prolonged immobilization, or recent surgery, rule out PE admit to telemetry for cardiac monitoring, will repeat troponins and ordered d- dimer, lipid panel, hga1c and TSH Status: Acute (2) Prediabetes Assessment and Plan: pt w/ hyperglycemia, hga1c ordered continue with metformin 500mg bid Status: Chronic (3) Transaminitis Assessment and Plan: unknown etiology, can follow as outpatient Status: Acute (4) Obesity Status: Chronic <Baron Mcclendon - Last Filed: 04/28/17 07:08> Results - Vital Signs Recent Vital Signs: Last Vital Signs Temp 98.3 F 04/28/17 05:00 Pulse 87 04/28/17 05:12 Resp 12 04/28/17 05:12 BP 120/74 04/28/17 05:00 Pulse Ox 99 04/28/17 05:12 - Labs Result Diagrams: 04/28/17 01:36 04/28/17 01:36 Labs: Laboratory Results - last 24 hr 04/28/17 04/28/17 04/28/17 01:36 01:36 01:37 WBC 4.5 L RBC 4.26 Hgb 12.0 Hct 36.5 MCV 85.6 MCH 28.1 MCHC 32.8 L RDW 14.0 Plt Count 190 MPV 9.1 Neut % (Auto) 75.1 H Lymph % (Auto) 16.0 L Raw[place] % (Auto) 6.3 Eos % (Auto) 1.5 Baso % (Auto) 1.1 Neut # 3.4 Lymph # 0.7 L Raw[place]ins # 0.3 Eos # 0.1 Baso # 0.1 Sodium 137 Potassium 3.7 Chloride 105 Carbon Dioxide 21 L Anion Gap 15 BUN 15 Creatinine 0.5 L Est GFR ( Amer) > 60 Est GFR (Non-Af Amer) > 60 POC Glucose (mg/dL) 269 H Random Glucose 231 H Calcium 8.8 Total Bilirubin 0.4 AST 40 H D ALT 68 H D Alkaline Phosphatase 90 Troponin I < 0.0120 Total Protein 7.2 Albumin 4.0 Globulin 3.2 Albumin/Globulin Ratio 1.3 Urine Color Urine Clarity Urine pH Ur Specific Dixon Urine Protein Urine Glucose (UA) Urine Ketones Urine Blood Urine Nitrate Urine Bilirubin Urine Urobilinogen Ur Leukocyte Esterase Urine RBC (Auto) Urine Microscopic WBC Ur Squamous Epith Cells Urine Bacteria 04/28/17 04/28/17 02:46 05:27 WBC RBC Hgb Hct MCV MCH MCHC RDW Plt Count MPV Neut % (Auto) Lymph % (Auto) Rawlins % (Auto) Eos % (Auto) Baso % (Auto) Neut # Lymph # Raw[place]ins # Eos # Baso # Sodium Potassium Chloride Carbon Dioxide Anion Gap BUN Creatinine Est GFR ( Amer) Est GFR (Non-Af Amer) POC Glucose (mg/dL) 197 H Random Glucose Calcium Total Bilirubin AST ALT Alkaline Phosphatase Troponin I Total Protein Albumin Globulin Albumin/Globulin Ratio Urine Color Straw Urine Clarity Slighty-cloudy Urine pH 6.0 Ur Specific Dixon < 1.005 Urine Protein Negative Urine Glucose (UA) 50 Urine Ketones Negative Urine Blood Negative Urine Nitrate Negative Urine Bilirubin Negative Urine Urobilinogen 0.2-1.0 Ur Leukocyte Esterase Neg Urine RBC (Auto) 1 Urine Microscopic WBC 2 Ur Squamous Epith Cells 6 H Urine Bacteria Rare Attending/Attestation - Attestation I have personally seen and examined this patient.: Yes I have fully participated in the care of the patient.: Yes I have reviewed all pertinent clinical information: Yes
[2017-04-28] MEDS: Enoxaparin 40 mg Syringe SC SCH (08:18)
--- NOTE | 2017-04-28 08:19 | RAD ---
PROCEDURE: CHEST RADIOGRAPH, 1 VIEW HISTORY: cp COMPARISON: Chest radiographs 10/14/2016. FINDINGS: LUNGS: No acute infiltrate bilaterally. PLEURA: No pneumothorax or pleural fluid seen. CARDIOVASCULAR: Normal. OSSEOUS STRUCTURES: No significant abnormalities. VISUALIZED UPPER ABDOMEN: Normal. OTHER FINDINGS: None. IMPRESSION: No interval acute cardiopulmonary disease appreciated. Stable
[2017-04-28 09:32] LABS: CHOLESTEROL 143 mg/dL (0-199)
--- NOTE | 2017-04-28 15:38 | US ---
PROCEDURE: Right lower extremity duplex venous sonography. HISTORY: right calf pain and chest pain COMPARISON: None available. TECHNIQUE: Common femoral, superficial femoral, popliteal and posterior tibial veins were evaluated. Flow was assessed with color Doppler, compressibility, assessment of phasic flow and augmentation response. FINDINGS: COMMON FEMORAL VEIN: Unremarkable. SUPERFICIAL FEMORAL VEIN: Unremarkable. POPLITEAL VEIN: Unremarkable. POSTERIOR TIBIAL VEIN: Unremarkable. OTHER FINDINGS: None. IMPRESSION: No evidence of deep venous thrombosis in the right lower extremity.
--- NOTE | 2017-04-28 23:45 | CARD ---
APPROVED REPORT EKG Measurement Heart [id number] <Conclusion> Normal sinus rhythm with sinus arrhythmia ST elevation, consider early repolarization, pericarditis, or injury Nonspecific ST and T wave abnormality Abnormal ECG
[2017-04-29 00:14] VITALS: RESP 18
[2017-04-29 08:01] VITALS: O2SAT 99
[2017-04-29] MEDS: Enoxaparin 40 mg Syringe SC SCH (09:16)
--- NOTE | 2017-04-29 09:35 | CP.PCM.CON ---
History of Present Illness - History of Present Illness History of Present Illness: This 36-year- old -[place] female abruptly developed a sharp left pectoral pain while working at home on Wednesday evening and kept on coming back and finally she came to the emergency room approximately 4-5 hours later. The pain persisted 10-15 hours even after her admission. This pain is not connected to any body movements or physical activity. It does not radiate into her jaw on her arms. It was not accompanied by any perspiration nausea vomiting or palpitations of sudden shortness of breath. The patient has been on anti-diabetic medications for a year and admits to having gained approximately 70 pounds over last 4-5 years. She used to be a smoker for 3 years and finally quit 17 years back. She is not a hypertensive and has no prior history of coronary artery disease or myocardial infarction. Her mother was a diabetic and had intermittent chest pain but a tien myocardial infarction was not diagnosed. The patient also gives history of having had heartburn in the past and gives history of having panic disorder. Physical examination shows a moderately overweight -[place] female who is quite anxious and being hospitalized. She is alert awake oriented and afebrile and can carry on a conversation. Her respiratory rate was 14-16 breaths per minute and her heart rate was 64 bpm and regular. Her blood pressure was 114/70 mmHg. Her jugular venous pressure was not elevated and there was no edema over her lower extremity. Her pedal pulses are well felt. Hydrin breast did not reveal anything abnormal. Her extremities were warm and the nailbeds are pink. There was no central or peripheral cyanosis. The apex was not palpable. First and second heart sounds were normal. There was no gallop and there were no murmurs. Abdomen was soft liver and spleen were not palpable. There was no area of tenderness in the precordium. Her electrocardiogram taken 3 times showed sinus rhythm with no evidence of ischemic ST-T changes or Q waves. Cardiac enzymes of 10 38 hours apart did not show any evidence of myocyte injury. Her lipid profile was quite unremarkable. Her liver profile showed mildly elevated AST and AST. Her BUN/creatinine were normal and her sodium potassium levels were normal as well. Impression: Atypical chest pain with no evidence of acute coronary syndrome. Chronic exogenous obesity and type 2 diabetes mellitus. History of heartburn and anxiety disorder. The patient may be allowed to return home and continue management and evaluation of her symptoms as an outpatient. I have explained the benign nature of her symptoms to her. Past Patient History - Infectious Disease Hx of Infectious Diseases: None - Past Medical History & Family History Past Medical History?: Yes - Past Social History Smoking Status: Never Smoked Alcohol: Social Drugs: Denies - CARDIAC Hx Cardiac Disorders: No - PULMONARY Hx Respiratory Disorders: No - NEUROLOGICAL Hx Neurological Disorder: No - HEENT Hx HEENT Problems: No - RENAL Hx Chronic Kidney Disease: No - ENDOCRINE/METABOLIC Hx Endocrine Disorders: Yes - HEMATOLOGICAL/ONCOLOGICAL Hx Blood Disorders: No Hx AIDS: No Hx Human Immunodeficiency Virus (HIV): No - INTEGUMENTARY Hx Dermatological Problems: No - MUSCULOSKELETAL/RHEUMATOLOGICAL Hx Musculoskeletal Disorders: No Hx Falls: No - GASTROINTESTINAL Hx Gastrointestinal Disorders: No - GENITOURINARY/GYNECOLOGICAL Hx Genitourinary Disorders: No - PSYCHIATRIC Hx Anxiety: Yes - SURGICAL HISTORY Hx Surgeries: Yes Hx Section: Yes Other/Comment: left foot - ANESTHESIA Hx Anesthesia: Yes Hx Anesthesia Reactions: No Meds Allergies/Adverse Reactions: Allergies Allergy/AdvReac Type Severity Reaction Status Date / Time No Known Allergies Allergy Verified 03/06/17 14:37 - Medications Medications: Current Medications Acetaminophen (Tylenol 325mg Tab) 650 mg PO Q6 PRN PRN Reason: Pain, Mild (1-3) Last Admin: 04/28/17 08:20 Dose: 650 mg Enoxaparin Sodium (Lovenox) 40 mg SC DAILY [facility] PRN Reason: Protocol Last Admin: 04/29/17 09:16 Dose: 40 mg Famotidine (Pepcid) 20 mg PO BID [facility] Last Admin: 04/29/17 09:15 Dose: 20 mg Ketorolac Tromethamine (Toradol) 30 mg IVP Q6 PRN PRN Reason: Pain, moderate (4-7) Last Admin: 04/28/17 16:49 Dose: 30 mg Metformin HCl (Glucophage) 500 mg PO BID [facility] Last Admin: 04/29/17 09:16 Dose: 500 mg Results - Vital Signs Recent Vital Signs: Last Vital Signs Temp 98.0 F 04/29/17 08:00 Pulse 76 04/29/17 08:00 Resp 18 04/29/17 08:00 BP 105/64 04/29/17 08:00 Pulse Ox 99 04/29/17 08:00 - Labs Result Diagrams: 04/28/17 01:36 04/28/17 01:36 Labs: Laboratory Results - last 24 hr 04/28/17 04/28/17 04/28/17 08:50 08:50 08:50 D-Dimer, Quantitative POC Glucose (mg/dL) Hemoglobin A1c 9.6 H Troponin I < 0.0120 Triglycerides 89 Cholesterol 143 LDL Cholesterol Direct 94 HDL Cholesterol 37 Free T4 1.06 TSH 3rd Generation 1.20 Urine Opiates Screen Urine Methadone Screen Ur Barbiturates Screen Ur Phencyclidine Scrn Ur Amphetamines Screen U Benzodiazepines Scrn U Oth Cocaine Metabols U Cannabinoids Screen 04/28/17 04/28/17 04/28/17 08:50 11:22 14:00 D-Dimer, Quantitative 203 POC Glucose (mg/dL) 273 H Hemoglobin A1c Troponin I Triglycerides Cholesterol LDL Cholesterol Direct HDL Cholesterol Free T4 TSH 3rd Generation Urine Opiates Screen Negative Urine Methadone Screen Negative Ur Barbiturates Screen Negative Ur Phencyclidine Scrn Negative Ur Amphetamines Screen Negative U Benzodiazepines Scrn Negative U Oth Cocaine Metabols Negative U Cannabinoids Screen Negative 04/28/17 04/28/17 04/28/17 15:43 17:09 21:14 D-Dimer, Quantitative POC Glucose (mg/dL) 221 H 197 H Hemoglobin A1c Troponin I < 0.0120 Triglycerides Cholesterol LDL Cholesterol Direct HDL Cholesterol Free T4 TSH 3rd Generation Urine Opiates Screen Urine Methadone Screen Ur Barbiturates Screen Ur Phencyclidine Scrn Ur Amphetamines Screen U Benzodiazepines Scrn U Oth Cocaine Metabols U Cannabinoids Screen 04/29/17 05:29 D-Dimer, Quantitative POC Glucose (mg/dL) 173 H Hemoglobin A1c Troponin I Triglycerides Cholesterol LDL Cholesterol Direct HDL Cholesterol Free T4 TSH 3rd Generation Urine Opiates Screen Urine Methadone Screen Ur Barbiturates Screen Ur Phencyclidine Scrn Ur Amphetamines Screen U Benzodiazepines Scrn U Oth Cocaine Metabols U Cannabinoids Screen
--- NOTE | 2017-04-29 10:26 | CP.PCM.DIS ---
<Trevor Kellogg - Last Filed: 04/29/17 10:36> Provider - Provider Date of Admission: 04/28/17 11:57 Attending physician: Baron Townsend MD Primary care physician: Baron Townsend MD Time Spent in preparation of Discharge (in minutes): 30 Diagnosis - Discharge Diagnosis (1) Chest pain Status: Acute (2) Obesity Status: Chronic (3) Anxiety Status: Chronic Hospital Course - Lab Results Lab Results: Most Recent Lab Values WBC 4.5 K/uL (4.8-10.8) L 04/28/17 01:36 RBC 4.26 Mil/uL (3.80-5.20) 04/28/17 01:36 Hgb 12.0 g/dL (12.0-16.0) 04/28/17 01:36 Hct 36.5 % (34.0-47.0) 04/28/17 01:36 MCV 85.6 fl (81.0-99.0) 04/28/17 01:36 MCH 28.1 pg (27.0-31.0) 04/28/17 01:36 MCHC 32.8 g/dL (33.0-37.0) L 04/28/17 01:36 RDW 14.0 % (11.5-14.5) 04/28/17 01:36 Plt Count 190 K/uL (130-400) 04/28/17 01:36 MPV 9.1 fl (7.2-11.7) 04/28/17 01:36 Neut % (Auto) 75.1 % (50.0-75.0) H 04/28/17 01:36 Lymph % (Auto) 16.0 % (20.0-40.0) L 04/28/17 01:36 [place] % (Auto) 6.3 % (0.0-10.0) 04/28/17 01:36 Eos % (Auto) 1.5 % (0.0-4.0) 04/28/17 01:36 Baso % (Auto) 1.1 % (0.0-2.0) 04/28/17 01:36 Neut # 3.4 K/uL (1.8-7.0) 04/28/17 01:36 Lymph # 0.7 K/uL (1.0-4.3) L 04/28/17 01:36 [place] # 0.3 K/uL (0.0-0.8) 04/28/17 01:36 Eos # 0.1 K/uL (0.0-0.7) 04/28/17 01:36 Baso # 0.1 K/uL (0.0-0.2) 04/28/17 01:36 D-Dimer, Quantitative 203 ng/mlDDU (0-230) 04/28/17 08:50 Sodium 137 mmol/l (132-148) 04/28/17 01:36 Potassium 3.7 MMOL/L (3.6-5.0) 04/28/17 01:36 Chloride 105 mmol/L (98-107) 04/28/17 01:36 Carbon Dioxide 21 mmol/L (22-30) L 04/28/17 01:36 Anion Gap 15 (10-20) 04/28/17 01:36 BUN 15 mg/dl (7-17) 04/28/17 01:36 Creatinine 0.5 mg/dl (0.7-1.2) L 04/28/17 01:36 Est GFR ( Amer) > 60 04/28/17 01:36 Est GFR (Non-Af Amer) > 60 04/28/17 01:36 POC Glucose (mg/dL) 173 mg/dL (65-110) H 04/29/17 05:29 Random Glucose 231 mg/dL (65-105) H 04/28/17 01:36 Hemoglobin A1c 9.6 % (4.2-6.5) H 04/28/17 08:50 Calcium 8.8 mg/dL (8.4-10.2) 04/28/17 01:36 Total Bilirubin 0.4 mg/dl (0.2-1.3) 04/28/17 01:36 AST 40 U/L (14-36) H D 04/28/17 01:36 ALT 68 U/L (9-52) H D 04/28/17 01:36 Alkaline Phosphatase 90 U/L (38-126) 04/28/17 01:36 Troponin I < 0.0120 ng/mL (0.00-0.120) 04/28/17 17:09 Total Protein 7.2 G/DL (6.3-8.2) 04/28/17 01:36 Albumin 4.0 g/dL (3.5-5.0) 04/28/17 01:36 Globulin 3.2 gm/dL (2.2-3.9) 04/28/17 01:36 Albumin/Globulin Ratio 1.3 (1.0-2.1) 04/28/17 01:36 Triglycerides 89 mg/DL (0-149) 04/28/17 08:50 Cholesterol 143 mg/dL (0-199) 04/28/17 08:50 LDL Cholesterol Direct 94 mg/dL (0-129) 04/28/17 08:50 HDL Cholesterol 37 MG/DL (30-70) 04/28/17 08:50 Free T4 1.06 ng/dL (0.78-2.19) 04/28/17 08:50 TSH 3rd Generation 1.20 mIU/ML (0.46-4.68) 04/28/17 08:50 Urine Color Straw (YELLOW) 04/28/17 02:46 Urine Clarity Slighty-cloudy (Clear) 04/28/17 02:46 Urine pH 6.0 (5.0-8.0) 04/28/17 02:46 Ur Specific Polaris < 1.005 (1.003-1.030) 04/28/17 02:46 Urine Protein Negative mg/dL (NEGATIVE) 04/28/17 02:46 Urine Glucose (UA) 50 mg/dL (Normal) 04/28/17 02:46 Urine Ketones Negative mg/dL (NEGATIVE) 04/28/17 02:46 Urine Blood Negative (NEGATIVE) 04/28/17 02:46 Urine Nitrate Negative (NEGATIVE) 04/28/17 02:46 Urine Bilirubin Negative (NEGATIVE) 04/28/17 02:46 Urine Urobilinogen 0.2-1.0 mg/dL (0.2-1.0) 04/28/17 02:46 Ur Leukocyte Esterase Neg Nicole/uL (Negative) 04/28/17 02:46 Urine RBC (Auto) 1 /hpf (0-3) 04/28/17 02:46 Urine Microscopic WBC 2 /hpf (0-5) 04/28/17 02:46 Ur Squamous Epith Cells 6 /hpf (0-5) H 04/28/17 02:46 Urine Bacteria Rare (<OCC) 04/28/17 02:46 Urine Opiates Screen Negative (NEGATIVE) 04/28/17 14:00 Urine Methadone Screen Negative (NEGATIVE) 04/28/17 14:00 Ur Barbiturates Screen Negative (NEGATIVE) 04/28/17 14:00 Ur Phencyclidine Scrn Negative (NEGATIVE) 04/28/17 14:00 Ur Amphetamines Screen Negative (NEGATIVE) 04/28/17 14:00 U Benzodiazepines Scrn Negative (NEGATIVE) 04/28/17 14:00 U Oth Cocaine Metabols Negative (NEGATIVE) 04/28/17 14:00 U Cannabinoids Screen Negative (NEGATIVE) 04/28/17 14:00 - Hospital Course Hospital Course: 36 YO obese female with a history of anxiety was admitted for chest pain. She was worked up thoroughly: - Troponin x 3 negative - Repeat EKG : No signs of acute event. In initial EKG non specific ST wave changes were seen, however on repeat no acute changes were noted. - Patient has a heart score of 1 - Cardiology consulted: Cleared by cardiology - Right lower extremity U/S: negative: since patient was complaining of pain there - HBA1C: 9.6. Patient states she does not take her medication regularly. Have emphasized the importance of taking medication regularly. - Denies any suicidal or homicidal ideation - On discharge patient denies any chest pain, palpitations, SOB, nausea, vomiting, dizziness. - Encouraged on relaxation exercises. - Patient follow up with psychiatrist outpatient: Advised to follow up - Continue home meds - F/U with Dr. Townsend within 1 week of discharge. Discharge Exam - Head Exam Head Exam: ATRAUMATIC, NORMAL INSPECTION, NORMOCEPHALIC - Eye Exam Eye Exam: Normal appearance - Respiratory Exam Respiratory Exam: Clear to PA & Lateral, NORMAL BREATHING PATTERN - Cardiovascular Exam Cardiovascular Exam: REGULAR RHYTHM, RRR, +S1, +S2 - GI/Abdominal Exam GI & Abdominal Exam: Normal Bowel Sounds, Soft. absent: Tenderness Additional comments: obese - Extremities Exam Extremities exam: normal inspection - Back Exam Back exam: absent: CVA tenderness (L), CVA tenderness (R) - Neurological Exam Neurological exam: Alert, CN II-XII Intact, Normal Gait, Oriented x3 - Skin Skin Exam: Normal Color, Warm Discharge Plan - Follow Up Plan Condition: GOOD Disposition: HOME/ ROUTINE Instructions: Chest Pain (DC) Additional Instructions: - Patient has been worked up thoroughly, Troponins x 3 negative, Repeat EKG no acute abnormalities shown. - Patients HBA1c shows uncontrolled diabetes HBA1c: 9.6, patient admits to not being complient. Encouraged to take daily - follow up with PMD within 1 week after discharge. - Follow up w/ psychiatrist in 1 week - If symptoms return or worsen please return to the ER Referrals: Baron Townsend MD [Primary Care Provider] - <Tom Cast - Last Filed: 04/30/17 06:54> Provider - Provider Date of Admission: 04/28/17 03:48 Attending physician: Baron Townsend MD Primary care physician: Baron Townsend MD Hospital Course - Lab Results Lab Results: Most Recent Lab Values WBC 4.5 K/uL (4.8-10.8) L 04/28/17 01:36 RBC 4.26 Mil/uL (3.80-5.20) 04/28/17 01:36 Hgb 12.0 g/dL (12.0-16.0) 04/28/17 01:36 Hct 36.5 % (34.0-47.0) 04/28/17 01:36 MCV 85.6 fl (81.0-99.0) 04/28/17 01:36 MCH 28.1 pg (27.0-31.0) 04/28/17 01:36 MCHC 32.8 g/dL (33.0-37.0) L 04/28/17 01:36 RDW 14.0 % (11.5-14.5) 04/28/17 01:36 Plt Count 190 K/uL (130-400) 04/28/17 01:36 MPV 9.1 fl (7.2-11.7) 04/28/17 01:36 Neut % (Auto) 75.1 % (50.0-75.0) H 04/28/17 01:36 Lymph % (Auto) 16.0 % (20.0-40.0) L 04/28/17 01:36 [place] % (Auto) 6.3 % (0.0-10.0) 04/28/17 01:36 Eos % (Auto) 1.5 % (0.0-4.0) 04/28/17 01:36 Baso % (Auto) 1.1 % (0.0-2.0) 04/28/17 01:36 Neut # 3.4 K/uL (1.8-7.0) 04/28/17 01:36 Lymph # 0.7 K/uL (1.0-4.3) L 04/28/17 01:36 [place] # 0.3 K/uL (0.0-0.8) 04/28/17 01:36 Eos # 0.1 K/uL (0.0-0.7) 04/28/17 01:36 Baso # 0.1 K/uL (0.0-0.2) 04/28/17 01:36 D-Dimer, Quantitative 203 ng/mlDDU (0-230) 04/28/17 08:50 Sodium 137 mmol/l (132-148) 04/28/17 01:36 Potassium 3.7 MMOL/L (3.6-5.0) 04/28/17 01:36 Chloride 105 mmol/L (98-107) 04/28/17 01:36 Carbon Dioxide 21 mmol/L (22-30) L 04/28/17 01:36 Anion Gap 15 (10-20) 04/28/17 01:36 BUN 15 mg/dl (7-17) 04/28/17 01:36 Creatinine 0.5 mg/dl (0.7-1.2) L 04/28/17 01:36 Est GFR ( Amer) > 60 04/28/17 01:36 Est GFR (Non-Af Amer) > 60 04/28/17 01:36 POC Glucose (mg/dL) 284 mg/dL (65-110) H 04/29/17 10:42 Random Glucose 231 mg/dL (65-105) H 04/28/17 01:36 Hemoglobin A1c 9.6 % (4.2-6.5) H 04/28/17 08:50 Calcium 8.8 mg/dL (8.4-10.2) 04/28/17 01:36 Total Bilirubin 0.4 mg/dl (0.2-1.3) 04/28/17 01:36 AST 40 U/L (14-36) H D 04/28/17 01:36 ALT 68 U/L (9-52) H D 04/28/17 01:36 Alkaline Phosphatase 90 U/L (38-126) 04/28/17 01:36 Troponin I < 0.0120 ng/mL (0.00-0.120) 04/28/17 17:09 Total Protein 7.2 G/DL (6.3-8.2) 04/28/17 01:36 Albumin 4.0 g/dL (3.5-5.0) 04/28/17 01:36 Globulin 3.2 gm/dL (2.2-3.9) 04/28/17 01:36 Albumin/Globulin Ratio 1.3 (1.0-2.1) 04/28/17 01:36 Triglycerides 89 mg/DL (0-149) 04/28/17 08:50 Cholesterol 143 mg/dL (0-199) 04/28/17 08:50 LDL Cholesterol Direct 94 mg/dL (0-129) 04/28/17 08:50 HDL Cholesterol 37 MG/DL (30-70) 04/28/17 08:50 Free T4 1.06 ng/dL (0.78-2.19) 04/28/17 08:50 TSH 3rd Generation 1.20 mIU/ML (0.46-4.68) 04/28/17 08:50 Urine Color Straw (YELLOW) 04/28/17 02:46 Urine Clarity Slighty-cloudy (Clear) 04/28/17 02:46 Urine pH 6.0 (5.0-8.0) 04/28/17 02:46 Ur Specific [place] < 1.005 (1.003-1.030) 04/28/17 02:46 Urine Protein Negative mg/dL (NEGATIVE) 04/28/17 02:46 Urine Glucose (UA) 50 mg/dL (Normal) 04/28/17 02:46 Urine Ketones Negative mg/dL (NEGATIVE) 04/28/17 02:46 Urine Blood Negative (NEGATIVE) 04/28/17 02:46 Urine Nitrate Negative (NEGATIVE) 04/28/17 02:46 Urine Bilirubin Negative (NEGATIVE) 04/28/17 02:46 Urine Urobilinogen 0.2-1.0 mg/dL (0.2-1.0) 04/28/17 02:46 Ur Leukocyte Esterase Neg Nicole/uL (Negative) 04/28/17 02:46 Urine RBC (Auto) 1 /hpf (0-3) 04/28/17 02:46 Urine Microscopic WBC 2 /hpf (0-5) 04/28/17 02:46 Ur Squamous Epith Cells 6 /hpf (0-5) H 04/28/17 02:46 Urine Bacteria Rare (<OCC) 04/28/17 02:46 Urine Opiates Screen Negative (NEGATIVE) 04/28/17 14:00 Urine Methadone Screen Negative (NEGATIVE) 04/28/17 14:00 Ur Barbiturates Screen Negative (NEGATIVE) 04/28/17 14:00 Ur Phencyclidine Scrn Negative (NEGATIVE) 04/28/17 14:00 Ur Amphetamines Screen Negative (NEGATIVE) 04/28/17 14:00 U Benzodiazepines Scrn Negative (NEGATIVE) 04/28/17 14:00 U Oth Cocaine Metabols Negative (NEGATIVE) 04/28/17 14:00 U Cannabinoids Screen Negative (NEGATIVE) 04/28/17 14:00 Attending/Attestation - Attestation I have personally seen and examined this patient.: Yes I have fully participated in the care of the patient.: Yes I have reviewed all pertinent clinical information, including history, physical exam and plan: Yes
[2017-04-29 11:51] VITALS: BP 132/84; PULSE 77; TEMP 97.9
--- NOTE | 2017-04-29 19:29 | CARD ---
APPROVED REPORT EKG Measurement Heart [id number] <Conclusion> Normal sinus rhythm Nonspecific ST abnormality Abnormal ECG
== END 2017-04-29 14:10 | disposition home or self-care (01) ==
LOC: H.ER 01:19 → H.ERHOLD 03:48 → H.TEL 04:34 → INTOOBSV 11:57 → OBSVTOIN 11:57
PROVIDERS: ADMIT Family Medicine; ATTEND Family Medicine
DX: R07.9 Chest pain, unspecified (principal); E66.09 Other obesity due to excess calories; Z68.31 Body mass index [BMI] 31.0-31.9, adult; E11.65 Type 2 diabetes mellitus with hyperglycemia; F41.9 Anxiety disorder, unspecified; R74.0 Nonspecific elevation of levels of transaminase and lactic acid dehydrogenase [LDH]; I10 Essential (primary) hypertension
CPT/HCPCS: 71010; 80053; 80061; 80324; 80345; 80346; 80349; 80353; 80358; 80361; 81003; 81025; 82948; 83036; 83992; 84439; 84443; 84484; 85025; 85378; 93005; 93971; 99282; G0378; J1650; J1885

== ENCOUNTER 2017-05-13 14:22 | Observation (INO) | payer BC, MEDICAID, OTHER ==
[2017-05-13 14:22] VITALS: BMI 31.3
--- NOTE | 2017-05-13 15:44 | ED PDOC ---
HPI: Chest Pain Time Seen by Provider: 05/13/17 15:16 Chief Complaint (Nursing): Chest Pain Chief Complaint (Provider): Chest Pain History Per: Patient History/Exam Limitations: no limitations Onset/Duration Of Symptoms: Hrs (8 hours ago) Current Symptoms Are (Timing): Intermittent Episodes Additional Complaint(s): 36 y/o female with a past medical history of anxiety presents to the ED complaining of chest pain, onset of 8 hours ago. Patient reports of having midsternal chest pain that started sometime this morning before work. She states that the pain subsided when she sat down but would worsen with movement. She also reports of experiencing some dizziness and a slight cough, but denies any shortness of breath, abdominal pain, leg pain, vomiting or diarrhea. Of note , patient was seen in the ED 2 weeks ago for a possible Myocardial Infarction and states that symptoms she's facing now are similar but less intense. At that evaluation 2 weeks ago, was told it was anxiety and was dc. No leg pain, long distance travel, or hormone tx. PCP: Baron Mcclendon Past Medical History Reviewed: Historical Data, Nursing Documentation, Vital Signs Vital Signs: Last Vital Signs Temp 98 F 05/13/17 14:31 Pulse 78 05/13/17 14:31 Resp 16 05/13/17 14:31 BP 126/76 05/13/17 14:31 Pulse Ox 100 05/13/17 18:32 - Medical History PMH: Anxiety, Diabetes Denies: HIV, Chronic Kidney Disease - Surgical History Surgical History: - Family History Family History: States: Unknown Family Hx - Social History Current smoker - smoking cessation education provided: No Ex-Smoker (has not smoked in the last 12 months): No Alcohol: None Drugs: Denies - Home Medications Home Medications: Ambulatory Orders Medication Instructions Recorded metFORMIN [glucOPHAGE] 500 mg PO BID 04/28/17 - Allergies Allergies/Adverse Reactions: Allergies Allergy/AdvReac Type Severity Reaction Status Date / Time No Known Allergies Allergy Verified 03/06/17 14:37 Review of Systems ROS Statement: Except As Marked, All Systems Reviewed And Found Negative Constitutional: Negative for: Fever Cardiovascular: Positive for: Chest Pain Respiratory: Positive for: Cough. Negative for: Shortness of Breath Gastrointestinal: Negative for: Nausea, Vomiting, Abdominal Pain, Diarrhea Musculoskeletal: Negative for: Leg Pain Neurological: Positive for: Dizziness. Negative for: Weakness, Numbness Physical Exam - Reviewed Nursing Documentation Reviewed: Yes Vital Signs Reviewed: Yes - Physical Exam Appears: Positive for: Non-toxic, No Acute Distress Head Exam: Positive for: ATRAUMATIC Skin: Positive for: Normal Color, Warm Eye Exam: Positive for: Normal appearance, EOMI, PERRL ENT: Positive for: Normal ENT Inspection Neck: Positive for: Normal, Painless ROM, Supple Cardiovascular/Chest: Positive for: Regular Rate, Rhythm, Chest Non Tender. Negative for: Edema, Murmur Respiratory: Positive for: Normal Breath Sounds. Negative for: Respiratory Distress Gastrointestinal/Abdominal: Positive for: Normal Exam, Soft. Negative for: Tenderness Back: Positive for: Normal Inspection. Negative for: L CVA Tenderness, R CVA Tenderness Extremity: Positive for: Normal ROM. Negative for: Tenderness, Pedal Edema, Deformity Neurologic/Psych: Positive for: Alert, Oriented. Negative for: Motor/Sensory Deficits - Laboratory Results Result Diagrams: 05/13/17 15:53 05/13/17 15:53 Interpretation Of Abn Labs: 0.015 trop - ECG ECG: Positive for: Interpreted By Me, Viewed By Me ECG Rhythm: Positive for: Normal QRS, Sinus Rhythm, Nonspecific Changes O2 Sat by Pulse Oximetry: 100 (RA) Pulse Ox Interpretation: Normal - Radiology X-Ray: Read By Radiologist X-Ray Interpretation: No Acute Disease - Progress ED Course And Treament: 1806: Stable. Spoke with [facility] resident. Will admit tele obs. Pain free. Medical Decision Making Medical Decision Making: Time: --15:29 Impression: --36 y/o female with Chest Pain Plan: --EKG --labs --troponin I --ED Urine Dip --D Dimer Coag --Chest X-ray --Toradol 15 mg IVP Reassess --16:25 FINDINGS: Chest X-ray LUNGS: No active pulmonary disease. PLEURA: No significant pleural effusion identified, no pneumothorax apparent. CARDIOVASCULAR: Normal. OSSEOUS STRUCTURES: No significant abnormalities. VISUALIZED UPPER ABDOMEN: Normal. OTHER FINDINGS: None. IMPRESSION: No active disease. Scribe Attestation: Documented by Mega Sauceda acting as a scribe for Kolton Wong MD. Disposition - Clinical Impression Clinical Impression: Acute chest pain - Patient ED Disposition Is Patient to be Admitted: Yes Counseled Patient/Family Regarding: Studies Performed, Diagnosis - Disposition Disposition Time: 18:45 Condition: STABLE - Pt Status Changed To: Hospital Disposition Of: Observation - POA Present On Arrival: None Core Measure Indicators: Chest Pain
[2017-05-13 16:07] LABS: BASO # 0.1 K/uL (0.0-0.2); BASO % 0.8 % (0.0-2.0); EOS # 0.1 K/uL (0.0-0.7); EOS % 1.1 % (0.0-4.0); HEMOGLOBIN 12.5 g/dL (12.0-16.0); LYMPH % 14.9 % (20.0-40.0); MEAN CELL VOLUME 85.7 fl (81.0-99.0); MEAN CORPUSCULAR HEMOGLOBIN 27.6 pg (27.0-31.0); MEAN CORPUSCULAR HGB CONC 32.3 g/dL (33.0-37.0); MEAN PLATELET VOLUME 8.7 fl (7.2-11.7); MONO # 0.6 K/uL (0.0-0.8); MONO % 8.8 % (0.0-10.0); NEUT % 74.4 % (50.0-75.0); RBC 4.54 Mil/uL (3.80-5.20); RED CELL DISTRIBUTION WIDTH 14.3 % (11.5-14.5); WHITE BLOOD COUNT 6.7 K/uL (4.8-10.8)
[2017-05-13 16:22] LABS: ALB/GLOB RATIO 1.2 (1.0-2.1); ALBUMIN 4.3 g/dL (3.5-5.0); ALT/SGPT 33 U/L (9-52); AST/SGOT 46 U/L (14-36); BLOOD UREA NITROGEN 10 mg/dl (7-17); GFR AFRICAN-AMERICAN > 60; GFR NON-AFRICAN AMERICAN > 60
--- NOTE | 2017-05-13 16:27 | RAD ---
HISTORY: dyspnea COMPARISON: Chest radiograph dated 04/28/2017. FINDINGS: LUNGS: No active pulmonary disease. PLEURA: No significant pleural effusion identified, no pneumothorax apparent. CARDIOVASCULAR: Normal. OSSEOUS STRUCTURES: No significant abnormalities. VISUALIZED UPPER ABDOMEN: Normal. OTHER FINDINGS: None. IMPRESSION: No active disease.
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
[2017-05-13 20:21] LABS: BENZODIAZEPINES, UR NEGATIVE (NEGATIVE); OPIATES, UR NEGATIVE (NEGATIVE); PHENCYCLIDINE, UR NEGATIVE (NEGATIVE)
[2017-05-14 00:20] VITALS: O2SAT 99
[2017-05-14 08:43] VITALS: RESP 20
[2017-05-14] MEDS ORDERED: Enoxaparin 40 mg Syringe SC SCH (09:00)
--- NOTE | 2017-05-14 09:26 | CARD ---
APPROVED REPORT EKG Measurement Heart [id number] NM [id number] <Conclusion> Normal sinus rhythm Possible Left atrial enlargement Nonspecific ST abnormality Abnormal ECG
--- NOTE | 2017-05-14 09:43 | CARD ---
APPROVED REPORT EKG Measurement Heart [id number] <Conclusion> Normal sinus rhythm Possible Left atrial enlargement Nonspecific ST and T wave abnormality Abnormal ECG
--- NOTE | 2017-05-14 10:53 | CP.PCM.CON ---
History of Present Illness - History of Present Illness History of Present Illness: THE PATIENT IS A 36 YEAR OLD FEMALE WITH A HISTORY OF ANXIETY WITH PANIC ATTACKS IN THE PAST, SHE IS OVERWEIGHT AND SHE HAS TYPE 2 DM. SHE WAS ADMITTED TO [facility] TWO WEEKS AGO FOR CHEST PAIN ANY WAS SEEN BY ANOTHER MAGNETIC LOCATER WHO STATED SHE HAD NON-CARDIAC CHEST PAIN AND HAS A NORMAL EKG AND NORMAL TROPONINS AND SHE WAS DISCHARGED. SHE DID NOT HAVE A STRESS TEST OR ECHOCARDIOGRAM. SHE NEVER FOLLOWED-UP WITH HER PRIMARY PHYSICIAN. 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 SHE HAD PAIN ON AND OFF ALL DAY AND CAME TO THE ER IN THE AFTERNOON AND WAS ADMITTED. SHE DENIES CHEST PAIN TODAY AND FEELS GOOD. Past Patient History - Infectious Disease Hx of Infectious Diseases: None - Past Medical History & Family History Past Medical History?: Yes - Past Social History Alcohol: None Drugs: Denies - CARDIAC Hx Cardiac Disorders: No - PULMONARY Hx Respiratory Disorders: No - NEUROLOGICAL Hx Neurological Disorder: No - HEENT Hx HEENT Problems: No - RENAL Hx Chronic Kidney Disease: No - ENDOCRINE/METABOLIC Hx Endocrine Disorders: Yes - HEMATOLOGICAL/ONCOLOGICAL Hx Human Immunodeficiency Virus (HIV): No - INTEGUMENTARY Hx Dermatological Problems: No - MUSCULOSKELETAL/RHEUMATOLOGICAL Hx Musculoskeletal Disorders: No Hx Falls: No - GASTROINTESTINAL Hx Gastrointestinal Disorders: No - GENITOURINARY/GYNECOLOGICAL Hx Genitourinary Disorders: No - PSYCHIATRIC Hx Anxiety: Yes - SURGICAL HISTORY Hx Surgeries: Yes Hx Section: Yes Other/Comment: left foot - ANESTHESIA Hx Anesthesia: Yes Hx Anesthesia Reactions: No Meds Allergies/Adverse Reactions: Allergies Allergy/AdvReac Type Severity Reaction Status Date / Time No Known Allergies Allergy Verified 03/06/17 14:37 - Medications Medications: Current Medications Buspirone HCl (Buspar) 5 mg PO BID [facility] Last Admin: 05/14/17 09:54 Dose: 5 mg Enoxaparin Sodium (Lovenox) 40 mg SC DAILY [facility] PRN Reason: Protocol Last Admin: 05/14/17 09:13 Dose: 40 mg Metformin HCl (Glucophage) 500 mg PO BID [facility] Last Admin: 05/14/17 09:13 Dose: 500 mg Physical Exam - Respiratory Exam Respiratory Exam: Clear to Auscultation Bilateral - Cardiovascular Exam Cardiovascular Exam: REGULAR RHYTHM, +S1, +S2 - Extremities Exam Extremities exam: Positive for: normal inspection - Additional Findings Additional findings: EKG NSR-MOTION ARTEFACT ALSO PRESENT TROPONINS ARE NORMAL Results - Vital Signs Recent Vital Signs: Last Vital Signs Temp 98.4 F 05/14/17 08:43 Pulse 63 05/14/17 09:00 Resp 20 05/14/17 08:43 BP 130/82 05/14/17 08:43 Pulse Ox 99 05/14/17 08:43 - Labs Result Diagrams: 05/13/17 15:53 05/13/17 15:53 Labs: Laboratory Results - last 24 hr 05/13/17 05/13/17 05/13/17 15:53 15:53 17:22 WBC 6.7 RBC 4.54 Hgb 12.5 Hct 38.9 MCV 85.7 MCH 27.6 MCHC 32.3 L RDW 14.3 Plt Count 263 MPV 8.7 Neut % (Auto) 74.4 Lymph % (Auto) 14.9 L [place] % (Auto) 8.8 Eos % (Auto) 1.1 Baso % (Auto) 0.8 Neut # 5.0 Lymph # 1.0 [place] # 0.6 Eos # 0.1 Baso # 0.1 D-Dimer, Quantitative 164 Sodium 133 Potassium 4.8 Chloride 104 Carbon Dioxide 23 Anion Gap 11 BUN 10 Creatinine 0.5 L Est GFR ( Amer) > 60 Est GFR (Non-Af Amer) > 60 POC Glucose (mg/dL) Random Glucose 164 H Calcium 9.0 Total Bilirubin 0.7 AST 46 H ALT 33 Alkaline Phosphatase 103 Troponin I 0.0150 Total Protein 7.8 Albumin 4.3 Globulin 3.5 Albumin/Globulin Ratio 1.2 Urine Opiates Screen Urine Methadone Screen Ur Barbiturates Screen Ur Phencyclidine Scrn Ur Amphetamines Screen U Benzodiazepines Scrn U Oth Cocaine Metabols U Cannabinoids Screen 05/13/17 05/13/17 05/13/17 19:40 22:23 23:55 WBC RBC Hgb Hct MCV MCH MCHC RDW Plt Count MPV Neut % (Auto) Lymph % (Auto) [place] % (Auto) Eos % (Auto) Baso % (Auto) Neut # Lymph # [place] # Eos # Baso # D-Dimer, Quantitative Sodium Potassium Chloride Carbon Dioxide Anion Gap BUN Creatinine Est GFR ( Amer) Est GFR (Non-Af Amer) POC Glucose (mg/dL) 211 H Random Glucose Calcium Total Bilirubin AST ALT Alkaline Phosphatase Troponin I < 0.0120 Total Protein Albumin Globulin Albumin/Globulin Ratio Urine Opiates Screen Negative Urine Methadone Screen Negative Ur Barbiturates Screen No result Ur Phencyclidine Scrn Negative Ur Amphetamines Screen Negative U Benzodiazepines Scrn Negative U Oth Cocaine Metabols Negative U Cannabinoids Screen Negative 05/14/17 06:24 WBC RBC Hgb Hct MCV MCH MCHC RDW Plt Count MPV Neut % (Auto) Lymph % (Auto) [place] % (Auto) Eos % (Auto) Baso % (Auto) Neut # Lymph # [place] # Eos # Baso # D-Dimer, Quantitative Sodium Potassium Chloride Carbon Dioxide Anion Gap BUN Creatinine Est GFR ( Amer) Est GFR (Non-Af Amer) POC Glucose (mg/dL) 141 H Random Glucose Calcium Total Bilirubin AST ALT Alkaline Phosphatase Troponin I Total Protein Albumin Globulin Albumin/Globulin Ratio Urine Opiates Screen Urine Methadone Screen Ur Barbiturates Screen Ur Phencyclidine Scrn Ur Amphetamines Screen U Benzodiazepines Scrn U Oth Cocaine Metabols U Cannabinoids Screen Assessment & Plan - Assessment and Plan (Free Text) Assessment: CHEST PAIN MOST PROBABLY FROM ANXIETY TYPE 2 DM OVERWEIGHT Plan: REGULAR STRESS TEST AND ECHOCARDIOGRAM WERE RECOMMENDED THEY WERE NOT DONE ON HER ADMISSION TWO WEEKS AGO AND SHE WAS AGREEABLE SO THEY WERE ORDERED
[2017-05-14 12:42] VITALS: TEMP 98.8
--- NOTE | 2017-05-14 13:02 | CARD ---
APPROVED REPORT EXAM: Two-dimensional and M-mode echocardiogram with Doppler and color Doppler. Other Information Quality : GoodRhythm : NSR INDICATION Chest Pain 2D DIMENSIONS IVSd1.39 (0.7-1.1cm)LVDd3.88 (3.9-5.9cm) LVOT Diameter2.04 (1.8-2.4cm)PWd1.15 (0.7-1.1cm) IVSs1.38 (0.8-1.2cm)LVDs3.17 (2.5-4.0cm) FS (%) 18.4 %PWs1.56 (0.8-1.2cm) M-Mode DIMENSIONS Left Atrium (MM)4.14 (2.5-4.0cm)IVSd1.10 (0.7-1.1cm) Aortic Root2.62 (2.2-3.7cm)LVDd4.27 (4.0-5.6cm) Aortic Cusp Exc.1.49 (1.5-2.0cm)PWd1.05 (0.7-1.1cm) IVSs1.38 cmFS (%) 37 % LVDs2.70 (2.0-3.8cm)PWs1.54 cm Mitral Valve MV E Bpwlzizq78.8cm/sMV DECEL [id number] A Jjxpodhg79.4cm/s MV OZN91ipV/A ratio1.9MVA (PHT)4.82cm2 TDI Lateral E' Peak V13.36cm/sMedial E' Peak V11.57cm/sE/Lateral E'7.1 E/Medial E'8.2 Pulmonary Valve PV Peak Mesjxdxx82.8cm/s Tricuspid Valve TR Peak Ssiewphr794rd/sRAP FQTQMYON07niUsFL Peak Gr.19mmHg CNTR55ihLw LEFT VENTRICLE The left ventricle is normal size. The left ventricular function is normal. The left ventricular ejection fraction is within the normal range. The Ejection Fraction is 60-65%. There is normal LV segmental wall motion. The left ventricular diastolic function is normal. RIGHT VENTRICLE The right ventricle is normal size. The right ventricular systolic function is normal. ATRIA The left atrium size is normal. The right atrium size is normal. AORTIC VALVE The aortic valve is normal in structure. No aortic regurgitation is present. There is no aortic valvular stenosis. MITRAL VALVE The mitral valve is normal in structure. There is no mitral valve stenosis. There is no mitral valve regurgitation noted. TRICUSPID VALVE The tricuspid valve is normal in structure. There is no tricuspid valve regurgitation noted. PULMONIC VALVE The pulmonary valve is normal in structure. There is no pulmonic valvular regurgitation. GREAT VESSELS The aortic root is normal in size. The IVC is normal in size and collapses >50% with inspiration. PERICARDIAL EFFUSION The pericardium appears normal. <Conclusion> The left ventricle is normal size. The left ventricular function is normal. The left ventricular ejection fraction is within the normal range. The Ejection Fraction is 60-65%.
[2017-05-14 13:05] VITALS: BP 148/88; PULSE 68
--- NOTE | 2017-05-14 15:04 | CP.PCM.DIS ---
<Trevor Kellogg - Last Filed: 05/14/17 20:33> Provider - Provider Date of Admission: 05/13/17 18:09 Attending physician: Baron Mcclendon MD Time Spent in preparation of Discharge (in minutes): 30 Diagnosis - Discharge Diagnosis (1) Chest pain Status: Acute (2) Anxiety Status: Chronic Hospital Course - Lab Results Lab Results: Most Recent Lab Values WBC 6.7 K/uL (4.8-10.8) 05/13/17 15:53 RBC 4.54 Mil/uL (3.80-5.20) 05/13/17 15:53 Hgb 12.5 g/dL (12.0-16.0) 05/13/17 15:53 Hct 38.9 % (34.0-47.0) 05/13/17 15:53 MCV 85.7 fl (81.0-99.0) 05/13/17 15:53 MCH 27.6 pg (27.0-31.0) 05/13/17 15:53 MCHC 32.3 g/dL (33.0-37.0) L 05/13/17 15:53 RDW 14.3 % (11.5-14.5) 05/13/17 15:53 Plt Count 263 K/uL (130-400) 05/13/17 15:53 MPV 8.7 fl (7.2-11.7) 05/13/17 15:53 Neut % (Auto) 74.4 % (50.0-75.0) 05/13/17 15:53 Lymph % (Auto) 14.9 % (20.0-40.0) L 05/13/17 15:53 Bailey % (Auto) 8.8 % (0.0-10.0) 05/13/17 15:53 Eos % (Auto) 1.1 % (0.0-4.0) 05/13/17 15:53 Baso % (Auto) 0.8 % (0.0-2.0) 05/13/17 15:53 Neut # 5.0 K/uL (1.8-7.0) 05/13/17 15:53 Lymph # 1.0 K/uL (1.0-4.3) 05/13/17 15:53 Bailey # 0.6 K/uL (0.0-0.8) 05/13/17 15:53 Eos # 0.1 K/uL (0.0-0.7) 05/13/17 15:53 Baso # 0.1 K/uL (0.0-0.2) 05/13/17 15:53 D-Dimer, Quantitative 164 ng/mlDDU (0-230) 05/13/17 17:22 Sodium 133 mmol/l (132-148) 05/13/17 15:53 Potassium 4.8 MMOL/L (3.6-5.0) 05/13/17 15:53 Chloride 104 mmol/L (98-107) 05/13/17 15:53 Carbon Dioxide 23 mmol/L (22-30) 05/13/17 15:53 Anion Gap 11 (10-20) 05/13/17 15:53 BUN 10 mg/dl (7-17) 05/13/17 15:53 Creatinine 0.5 mg/dl (0.7-1.2) L 05/13/17 15:53 Est GFR ( Amer) > 60 05/13/17 15:53 Est GFR (Non-Af Amer) > 60 05/13/17 15:53 POC Glucose (mg/dL) 207 mg/dL (65-110) H 05/14/17 11:26 Random Glucose 164 mg/dL (65-105) H 05/13/17 15:53 Calcium 9.0 mg/dL (8.4-10.2) 05/13/17 15:53 Total Bilirubin 0.7 mg/dl (0.2-1.3) 05/13/17 15:53 AST 46 U/L (14-36) H 05/13/17 15:53 ALT 33 U/L (9-52) 05/13/17 15:53 Alkaline Phosphatase 103 U/L (38-126) 05/13/17 15:53 Troponin I < 0.0120 ng/mL (0.00-0.120) 05/13/17 23:55 Total Protein 7.8 G/DL (6.3-8.2) 05/13/17 15:53 Albumin 4.3 g/dL (3.5-5.0) 05/13/17 15:53 Globulin 3.5 gm/dL (2.2-3.9) 05/13/17 15:53 Albumin/Globulin Ratio 1.2 (1.0-2.1) 05/13/17 15:53 Urine Opiates Screen Negative (NEGATIVE) 05/13/17 19:40 Urine Methadone Screen Negative (NEGATIVE) 05/13/17 19:40 Ur Barbiturates Screen No result (NEGATIVE) 05/13/17 19:40 Ur Phencyclidine Scrn Negative (NEGATIVE) 05/13/17 19:40 Ur Amphetamines Screen Negative (NEGATIVE) 05/13/17 19:40 U Benzodiazepines Scrn Negative (NEGATIVE) 05/13/17 19:40 U Oth Cocaine Metabols Negative (NEGATIVE) 05/13/17 19:40 U Cannabinoids Screen Negative (NEGATIVE) 05/13/17 19:40 - Hospital Course Hospital Course: 36 YO F w/ h/o anxiety presents to the ER with multiple episode of chest pain. Patients was throughly worked up. - Troponin x 2 negative -No significant changes from patients previous EKG - Cleared by cardiology, seems to be anxiety induced. Advised to follow up outpatient for a echocargram and a stress test, which is scheduled by cardio. Patient has been adivised the importance of following up outpatient. - ER precautions have been given. Patient has also been started on Buspirone 5mg twice a day. - Advised to F/U with Cardio, Dr. Mcclendon, and Psych. Discharge Exam - Head Exam Head Exam: ATRAUMATIC, NORMOCEPHALIC - Eye Exam Eye Exam: Normal appearance - Respiratory Exam Respiratory Exam: Clear to PA & Lateral, NORMAL BREATHING PATTERN. absent: Rales, Rhonchi, Wheezes - Cardiovascular Exam Cardiovascular Exam: REGULAR RHYTHM, +S1, +S2 - GI/Abdominal Exam GI & Abdominal Exam: Normal Bowel Sounds, Soft. absent: Tenderness - Neurological Exam Neurological exam: CN II-XII Intact, Normal Gait, Oriented x3 - Skin Skin Exam: Normal Color, Warm Discharge Plan - Discharge Medications Prescriptions: busPIRone [Buspar] 5 mg PO BID #60 tab - Follow Up Plan Condition: STABLE Disposition: HOME/ ROUTINE Instructions: Chest Pain (DC) Additional Instructions: Follow up with PMD Dr. Mcclendon in 1-2 days. Follow up with psych. F/U with cardio with Dr. Porter Return to ER if symptoms worsen. Referrals: Baron Mcclendon MD [Staff Provider] - Rony Franklin MD [Staff Provider] - <Baron Mcclendon - Last Filed: 05/18/17 06:59> Provider - Provider Date of Admission: 05/13/17 18:09 Attending physician: Baron Mcclendon MD Hospital Course - Lab Results Lab Results: Most Recent Lab Values WBC 6.7 K/uL (4.8-10.8) 05/13/17 15:53 RBC 4.54 Mil/uL (3.80-5.20) 05/13/17 15:53 Hgb 12.5 g/dL (12.0-16.0) 05/13/17 15:53 Hct 38.9 % (34.0-47.0) 05/13/17 15:53 MCV 85.7 fl (81.0-99.0) 05/13/17 15:53 MCH 27.6 pg (27.0-31.0) 05/13/17 15:53 MCHC 32.3 g/dL (33.0-37.0) L 05/13/17 15:53 RDW 14.3 % (11.5-14.5) 05/13/17 15:53 Plt Count 263 K/uL (130-400) 05/13/17 15:53 MPV 8.7 fl (7.2-11.7) 05/13/17 15:53 Neut % (Auto) 74.4 % (50.0-75.0) 05/13/17 15:53 Lymph % (Auto) 14.9 % (20.0-40.0) L 05/13/17 15:53 [place] % (Auto) 8.8 % (0.0-10.0) 05/13/17 15:53 Eos % (Auto) 1.1 % (0.0-4.0) 05/13/17 15:53 Baso % (Auto) 0.8 % (0.0-2.0) 05/13/17 15:53 Neut # 5.0 K/uL (1.8-7.0) 05/13/17 15:53 Lymph # 1.0 K/uL (1.0-4.3) 05/13/17 15:53 Bailey # 0.6 K/uL (0.0-0.8) 05/13/17 15:53 Eos # 0.1 K/uL (0.0-0.7) 05/13/17 15:53 Baso # 0.1 K/uL (0.0-0.2) 05/13/17 15:53 D-Dimer, Quantitative 164 ng/mlDDU (0-230) 05/13/17 17:22 Sodium 133 mmol/l (132-148) 05/13/17 15:53 Potassium 4.8 MMOL/L (3.6-5.0) 05/13/17 15:53 Chloride 104 mmol/L (98-107) 05/13/17 15:53 Carbon Dioxide 23 mmol/L (22-30) 05/13/17 15:53 Anion Gap 11 (10-20) 05/13/17 15:53 BUN 10 mg/dl (7-17) 05/13/17 15:53 Creatinine 0.5 mg/dl (0.7-1.2) L 05/13/17 15:53 Est GFR ( Amer) > 60 05/13/17 15:53 Est GFR (Non-Af Amer) > 60 05/13/17 15:53 POC Glucose (mg/dL) 207 mg/dL (65-110) H 05/14/17 11:26 Random Glucose 164 mg/dL (65-105) H 05/13/17 15:53 Calcium 9.0 mg/dL (8.4-10.2) 05/13/17 15:53 Total Bilirubin 0.7 mg/dl (0.2-1.3) 05/13/17 15:53 AST 46 U/L (14-36) H 05/13/17 15:53 ALT 33 U/L (9-52) 05/13/17 15:53 Alkaline Phosphatase 103 U/L (38-126) 05/13/17 15:53 Troponin I < 0.0120 ng/mL (0.00-0.120) 05/13/17 23:55 Total Protein 7.8 G/DL (6.3-8.2) 05/13/17 15:53 Albumin 4.3 g/dL (3.5-5.0) 05/13/17 15:53 Globulin 3.5 gm/dL (2.2-3.9) 05/13/17 15:53 Albumin/Globulin Ratio 1.2 (1.0-2.1) 05/13/17 15:53 Urine Opiates Screen Negative (NEGATIVE) 05/13/17 19:40 Urine Methadone Screen Negative (NEGATIVE) 05/13/17 19:40 Ur Barbiturates Screen No result (NEGATIVE) 05/13/17 19:40 Ur Phencyclidine Scrn Negative (NEGATIVE) 05/13/17 19:40 Ur Amphetamines Screen Negative (NEGATIVE) 05/13/17 19:40 U Benzodiazepines Scrn Negative (NEGATIVE) 05/13/17 19:40 U Oth Cocaine Metabols Negative (NEGATIVE) 05/13/17 19:40 U Cannabinoids Screen Negative (NEGATIVE) 05/13/17 19:40 Attending/Attestation - Attestation I have personally seen and examined this patient.: Yes I have fully participated in the care of the patient.: Yes I have reviewed all pertinent clinical information, including history, physical exam and plan: Yes
--- NOTE | 2017-05-14 15:30 | CP.PCM.DIS ---
Provider - Provider Date of Admission: 05/13/17 18:09 Attending physician: Baron Townsend MD Hospital Course - Lab Results Lab Results: Most Recent Lab Values WBC 6.7 K/uL (4.8-10.8) 05/13/17 15:53 RBC 4.54 Mil/uL (3.80-5.20) 05/13/17 15:53 Hgb 12.5 g/dL (12.0-16.0) 05/13/17 15:53 Hct 38.9 % (34.0-47.0) 05/13/17 15:53 MCV 85.7 fl (81.0-99.0) 05/13/17 15:53 MCH 27.6 pg (27.0-31.0) 05/13/17 15:53 MCHC 32.3 g/dL (33.0-37.0) L 05/13/17 15:53 RDW 14.3 % (11.5-14.5) 05/13/17 15:53 Plt Count 263 K/uL (130-400) 05/13/17 15:53 MPV 8.7 fl (7.2-11.7) 05/13/17 15:53 Neut % (Auto) 74.4 % (50.0-75.0) 05/13/17 15:53 Lymph % (Auto) 14.9 % (20.0-40.0) L 05/13/17 15:53 [place] % (Auto) 8.8 % (0.0-10.0) 05/13/17 15:53 Eos % (Auto) 1.1 % (0.0-4.0) 05/13/17 15:53 Baso % (Auto) 0.8 % (0.0-2.0) 05/13/17 15:53 Neut # 5.0 K/uL (1.8-7.0) 05/13/17 15:53 Lymph # 1.0 K/uL (1.0-4.3) 05/13/17 15:53 [place]ane # 0.6 K/uL (0.0-0.8) 05/13/17 15:53 Eos # 0.1 K/uL (0.0-0.7) 05/13/17 15:53 Baso # 0.1 K/uL (0.0-0.2) 05/13/17 15:53 D-Dimer, Quantitative 164 ng/mlDDU (0-230) 05/13/17 17:22 Sodium 133 mmol/l (132-148) 05/13/17 15:53 Potassium 4.8 MMOL/L (3.6-5.0) 05/13/17 15:53 Chloride 104 mmol/L (98-107) 05/13/17 15:53 Carbon Dioxide 23 mmol/L (22-30) 05/13/17 15:53 Anion Gap 11 (10-20) 05/13/17 15:53 BUN 10 mg/dl (7-17) 05/13/17 15:53 Creatinine 0.5 mg/dl (0.7-1.2) L 05/13/17 15:53 Est GFR ( Amer) > 60 05/13/17 15:53 Est GFR (Non-Af Amer) > 60 05/13/17 15:53 POC Glucose (mg/dL) 207 mg/dL (65-110) H 05/14/17 11:26 Random Glucose 164 mg/dL (65-105) H 05/13/17 15:53 Calcium 9.0 mg/dL (8.4-10.2) 05/13/17 15:53 Total Bilirubin 0.7 mg/dl (0.2-1.3) 05/13/17 15:53 AST 46 U/L (14-36) H 05/13/17 15:53 ALT 33 U/L (9-52) 05/13/17 15:53 Alkaline Phosphatase 103 U/L (38-126) 05/13/17 15:53 Troponin I < 0.0120 ng/mL (0.00-0.120) 05/13/17 23:55 Total Protein 7.8 G/DL (6.3-8.2) 05/13/17 15:53 Albumin 4.3 g/dL (3.5-5.0) 05/13/17 15:53 Globulin 3.5 gm/dL (2.2-3.9) 05/13/17 15:53 Albumin/Globulin Ratio 1.2 (1.0-2.1) 05/13/17 15:53 Urine Opiates Screen Negative (NEGATIVE) 05/13/17 19:40 Urine Methadone Screen Negative (NEGATIVE) 05/13/17 19:40 Ur Barbiturates Screen No result (NEGATIVE) 05/13/17 19:40 Ur Phencyclidine Scrn Negative (NEGATIVE) 05/13/17 19:40 Ur Amphetamines Screen Negative (NEGATIVE) 05/13/17 19:40 U Benzodiazepines Scrn Negative (NEGATIVE) 05/13/17 19:40 U Oth Cocaine Metabols Negative (NEGATIVE) 05/13/17 19:40 U Cannabinoids Screen Negative (NEGATIVE) 05/13/17 19:40 Discharge Exam - Head Exam Head Exam: ATRAUMATIC, NORMOCEPHALIC Discharge Plan - Discharge Medications Prescriptions: busPIRone [Buspar] 5 mg PO BID #60 tab - Follow Up Plan Condition: STABLE Disposition: HOME/ ROUTINE Additional Instructions: Follow up with PMD Dr. Townsend in 1-2 days. Follow up with psych. Return to ER if symptoms worsen. Referrals: Baron Townsend MD [Staff Provider] -
--- NOTE | 2017-05-14 16:07 | CARD ---
APPROVED REPORT Protocol: SADI Test Type: Treadmill Stress Test Attending Physician: Dr. Dr. Mcclendon Referring Physician: Dr. Dr. Franklin Technologist: TERESA Cruz Test Indications: chest pain Medications: Buspirone HCL 5mg Lovenox 40mg Metformin 500mg Xanax 0.5 Medical History: Anxiety, Obesity, , ETOH, Smoker Target HR: 186 bpm Resting ECG: normal Resting Heart Rate: 100 bpm Resting Blood Pressure: 120/80mmHg submaximum (85%): 158 bpm TEST SUMMARY [id number]/80.0. [id number]/80.0. PRETESTHYPERV.00:[id number]/80.0. PRETESTWARM-UP16:[id number]/80.0. EXERCISESTAGE 103:[id number]/72.0. EXERCISESTAGE 203:[id number]/72.0. EXERCISESTAGE 300:[id number]/72.0. [id number]/72.0. POST EXERCISE Reason for Termination: Target heart rate achieved Target HR: NoMax HR: 160 bpm91% of Maximum Predicted HR: 186 bpm Exercise duration: 3 Stage06:20 min:secExercise capacity: 7.5METs Max Blood Pressure: 176/72mmHg Blood Pressure response to exercise: normal resting BP - appropriate response Heart Rate response to exercise: appropriate Chest Pain: NononeAngina index: 0 Arrhythmia: Yesatrial premature beats-isolated ST Change: Yes0.5 mm Depression upslopingDeviation: 0 mm INTERPRETATION Stress EKG Conclusion: Normal stress test Fare Exercise tolerance
== END 2017-05-14 16:00 | disposition home or self-care (01) ==
LOC: H.ER 14:22 → H.ERHOLD 18:09 → H.TEL 19:52
PROVIDERS: ADMIT Family Medicine; ATTEND Family Medicine
DX: R07.89 Other chest pain (principal); F41.0 Panic disorder [episodic paroxysmal anxiety]; E11.9 Type 2 diabetes mellitus without complications; E66.9 Obesity, unspecified; Z79.84 Long term (current) use of oral hypoglycemic drugs; Z87.891 Personal history of nicotine dependence
CPT/HCPCS: 71010; 80053; 80324; 80345; 80346; 80349; 80353; 80358; 80361; 81025; 82948; 83992; 84484; 85025; 85378; 93005; 93017; 93306; 96374; 99285; G0378; J1650; J1885

== ENCOUNTER 2017-07-23 08:16 | Emergency (ER) | payer OTHER, MEDICAID ==
[2017-07-23 08:16] VITALS: BMI 31.3
[2017-07-23 08:27] VITALS: RESP 16; TEMP 97.5; O2SAT 100
--- NOTE | 2017-07-23 09:58 | ED PDOC ---
HPI: Trauma/Fall - HPI Time Seen by Provider: 07/23/17 09:03 Chief Complaint (Nursing): Back Pain Chief Complaint (Provider): Back Pain History Per: Patient History/Exam Limitations: no limitations Onset/Duration Of Symptoms: Sudden Onset Injury Occurred (Timing): Just Before Arrival Severity: Moderate Additional Complaint(s): 36 year old female with medical history of diabetes, presents to the emergency department for an evaluation after slipping on ice on her right side and losing consciousness for a few seconds prior to arrival. Patient reported feeling dazed , headache, neck pain, right shoulder pain, right knee/hip pain and right ankle pain. Denied any nausea, vomiting, abdominal pain, shortness of breath, focal weakness, numbness or visual changes. PMD: Baron Mcclendon MD charts reviewed, multiple prior ED visits Past Medical History Reviewed: Historical Data, Nursing Documentation, Vital Signs Vital Signs: Last Vital Signs Temp 97.5 F L 07/23/17 08:26 Pulse 111 H 07/23/17 08:26 Resp 16 07/23/17 08:26 BP 147/89 07/23/17 08:26 Pulse Ox 100 07/23/17 14:19 - Medical History PMH: Anxiety, Diabetes Denies: HIV, Chronic Kidney Disease - Surgical History Surgical History: Denies: No Surg Hx - Family History Family History: States: Unknown Family Hx, Diabetes, Hypertension - Social History Current smoker - smoking cessation education provided: No Ex-Smoker (has not smoked in the last 12 months): No Alcohol: Social Drugs: Denies - Home Medications Home Medications: Ambulatory Orders Medication Instructions Recorded metFORMIN [glucOPHAGE] 500 mg PO BID 04/28/17 busPIRone [Buspar] 5 mg PO BID #60 tab 05/14/17 Cyclobenzaprine [Cyclobenzaprine 10 mg PO Q8 PRN #9 tab 07/23/17 HCl] Ibuprofen [Motrin Tab] 600 mg PO Q6 PRN #15 tab 07/23/17 traMADol [Ultram] 50 mg PO TID PRN #12 tab 07/23/17 - Allergies Allergies/Adverse Reactions: Allergies Allergy/AdvReac Type Severity Reaction Status Date / Time No Known Allergies Allergy Verified 03/06/17 14:37 Review of Systems ROS Statement: Except As Marked, All Systems Reviewed And Found Negative Eyes: Negative for: Vision Change Respiratory: Negative for: Shortness of Breath Gastrointestinal: Negative for: Nausea, Vomiting, Abdominal Pain Musculoskeletal: Positive for: Neck Pain, Shoulder Pain (right-sided), Foot Pain (right-sided ankle), Other (right-sided hip pain) Neurological: Positive for: Confusion ("dazed"), Headache (with right-sided head injury), Other (LOC). Negative for: Weakness (focal), Numbness Physical Exam - Reviewed Nursing Documentation Reviewed: Yes Vital Signs Reviewed: Yes - Physical Exam Appears: Positive for: Non-toxic, Uncomfortable Head Exam: Positive for: ATRAUMATIC, NORMAL INSPECTION, NORMOCEPHALIC Skin: Positive for: Normal Color Eye Exam: Positive for: Normal appearance, EOMI, PERRL Neck: Positive for: Pain On Movement Of Neck (right paraspinal). Negative for: Painless ROM Cardiovascular/Chest: Positive for: Regular Rate, Rhythm, Other (mild right- sided rib tenderness) Respiratory: Positive for: Normal Breath Sounds. Negative for: Decreased Breath Sounds, Respiratory Distress Gastrointestinal/Abdominal: Positive for: Normal Exam, Soft. Negative for: Tenderness Extremity: Positive for: Tenderness (right wrist; right shoulder; right ankle), Other (right-sided hip tenderness). Negative for: Pedal Edema (bilateral), Deformity (or lacerations to upper/lower), Swelling (or ecchymosis to upper/ lower) Neurologic/Psych: Positive for: Alert, resident assistant cna II-XII (intact), Oriented. Negative for: Motor/Sensory Deficits - ECG O2 Sat by Pulse Oximetry: 100 (Ra) Pulse Ox Interpretation: Normal Medical Decision Making Medical Decision Making: Initial Impression: Multi-system injuries S/P fall Initial Plan: * CT c-spine without contrast * CT head without contrast * Toradol 15mg IM * Xray ribs and chest * Xray ankle (right) * Xray hand (right) * Xray hip with pelvis (right) * Xray shoulder (right) * Xray wrist (right) Time: 1030 --XRays were interpreted by provider: R ankle, R knee, R hand, R wrist, pelvis, R hip and R shoulder were found negative for fracture or dislocation on initial review. Rib and CXR revealed no pneumothorax. Time: 1033 --CT head FINDINGS: HEMORRHAGE: No acute parenchymal, subarachnoid nor extra-axial the intracranial hemorrhage. BRAIN: No mass effect or edema. No atrophy or chronic microvascular ischemic changes. VENTRICLES: Unremarkable. No hydrocephalus. CALVARIUM: Unremarkable. PARANASAL SINUSES: Minimal mucosal thickening seen within a few ethmoid air cells. MASTOID AIR CELLS: Unremarkable as visualized. No inflammatory changes. OTHER FINDINGS: None. IMPRESSION: No acute intracranial hemorrhage. Time: 1043 --CT Cervical Spine FINDINGS: VERTEBRAE: No acute displaced - anterior wedge compression fractures nor retropulsed fragments. . Minor chronic appearing anterior stature loss of the C5 and C6 segments felt to be degenerative in origin. Vertebral bodies otherwise exhibit normal stature. Minor straightening of the normal cervical lordosis however the vertebral bodies otherwise exhibit normal alignment. Facets normally aligned. DISCS/SPINAL CANAL/NEURAL FORAMINA: Degenerative spondylosis seen at several levels. At the C5-C6 level, there is disc space narrowing with small irregular osteophytic ridge disc disc bulge complex contiguous with hypertrophic uncovertebral joints. . Changes result in [id number] central canal stenosis and presumed cord compression. Facet joints are slightly prominent with slight bilateral foraminal narrowing. At the C6-C7 level, disc space height is relatively maintained. Small marginal anterior osteophyte formation. No large disc herniation. Minimal degenerative squaring of the uncovertebral joints. Central canal exit foramina appear adequate so far as can be seen. At the C4-C5 level, there is minor anterior disc space narrowing. No disc herniation or significant disc bulge. Minimal degenerative squaring of the uncovertebral joints. Facets also slightly overgrown. Exit foramina are slightly narrowed bilaterally. At the C3-C4 level, there is also minor anterior disc space narrowing. Minimal degenerative squaring of the uncovertebral joints. Facets are also slightly overgrown. Central canal appears adequate. Exit foramina appear marginal to adequate. PARASPINAL SOFT TISSUES: Unremarkable. OTHER FINDINGS: Thyroid gland is slightly heterogeneous in appearance likely due to crossing streak and beam hardening artifact arising from dense shoulder clavicles and shoulder girdles. IMPRESSION: No acute fractures. Minor degenerative spondylosis most notably affecting C5- C6 level as described. Time: 1118 --Patient continues to report hip pain. --Tylenol 975mg PO and CT of lower extremities ordered. Time: 1354 --CT lower extremities FINDINGS: BONES: Unremarkable. No fracture or focal lesion. Femoral head maintains normal contour. RIGHT HIP JOINT: Right hip is appropriately located within the right acetabulum No significant degenerative osteoarthritis. SOFT TISSUES: Unremarkable. IMPRESSION: No evidence of acute displaced fracture nor dislocation. Time: 1414 --Upon provider reevaluation, patient is medically stable and requires no further treatment in the ED at this time. Ambulating and no evidence of acute neurologic injury. Patient will be discharged home with Rx for Cyclobenzaprine HCL, Motrin 600mg and Ultram 50mg. Counseling was provided and all questions were answered regarding diagnosis and need for follow up. There is agreement to discharge plan. Return if symptoms persist or worsen. Work note provided for 2 work days. RUDDY wrap to R knee and R ankle provided by RN. Patient states she will followup with her workman comp physician. May require MR knee or other joints if symptoms persist. [facility] database reveals Rx for alprazolam and percocet last filled (perc 06/29/17 and alprazolam 07/20/17). Only tramadol #10 Rx today. Patient sees pain management. Clinical Impression: Hip contusion; rib contusion; head injury; ankle sprain; hand sprain; neck strain; shoulder injury; knee injury Scribe Attestation: Documented by Landy Chavez, acting as a scribe for Foreign Gomez III, DO. Provider Scribe Attestation: All medical record entries made by the Scribe were at my direction and personally dictated by me. I have reviewed the chart and agree that the record accurately reflects my personal performance of the history, physical exam, medical decision making, and the department course for this patient. I have also personally directed, reviewed, and agree with the discharge instructions and disposition. Disposition - Clinical Impression Clinical Impression: Contusion, hip, Head injury, Neck strain, Contusion of rib, Ankle sprain, Hand sprain, Knee injury, Shoulder injury, Fall - Patient ED Disposition Is Patient to be Admitted: No Counseled Patient/Family Regarding: Studies Performed, Diagnosis, Need For Followup, Rx Given - Disposition Referrals: Baron Mcclendon MD [Family Provider] - Disposition: Routine/Home Disposition Time: 14:14 Condition: STABLE Additional Instructions: See your doctor for further testing. Discuss referal to orthopedics for further evaluation of shoulder/wrist/hip/knee and ankle pain. Return to ER for any new symptoms. Take medications as directed, do not drive or operate machinery while taking muscle relaxants or pain medicine. Prescriptions: Cyclobenzaprine [Cyclobenzaprine HCl] 10 mg PO Q8 PRN #9 tab PRN Reason: Muscle Spasm Ibuprofen [Motrin Tab] 600 mg PO Q6 PRN #15 tab PRN Reason: Pain, Moderate (4-7) traMADol [Ultram] 50 mg PO TID PRN #12 tab PRN Reason: Pain, Moderate (4-7) Instructions: Ankle Sprain, Minor Head Injury (DC), Cervical Muscle Strain, Bruised Rib (DC) Forms: [employer] ([place]), [facility] ED School/Work Excuse
--- NOTE | 2017-07-23 10:34 | CT ---
PROCEDURE: CT HEAD WITHOUT CONTRAST. HISTORY: r/o ICH fall LOC COMPARISON: Comparison made with prior study 09/17/2016 TECHNIQUE: Axial computed tomography images were obtained through the head/brain without intravenous contrast. Radiation dose: Total exam DLP = 918.25 mGy-cm. This CT exam was performed using one or more of the following dose reduction techniques: Automated exposure control, adjustment of the mA and/or kV according to patient size, and/or use of iterative reconstruction technique. FINDINGS: HEMORRHAGE: No acute parenchymal, subarachnoid nor extra-axial the intracranial hemorrhage. BRAIN: No mass effect or edema. No atrophy or chronic microvascular ischemic changes. VENTRICLES: Unremarkable. No hydrocephalus. CALVARIUM: Unremarkable. PARANASAL SINUSES: Minimal mucosal thickening seen within a few ethmoid air cells. MASTOID AIR CELLS: Unremarkable as visualized. No inflammatory changes. OTHER FINDINGS: None. IMPRESSION: No acute intracranial hemorrhage.
--- NOTE | 2017-07-23 10:45 | CT ---
PROCEDURE: CT Cervical Spine without contrast HISTORY: Trauma. Rule out fracture. COMPARISON: None available. TECHNIQUE: Axial computed tomography images were obtained of the cervical spine without the use of intravenous contrast. Coronal and sagittal reformatted images were created and reviewed. Radiation dose: Total exam DLP = 556.01 mGy-cm. This CT exam was performed using one or more of the following dose reduction techniques: Automated exposure control, adjustment of the mA and/or kV according to patient size, and/or use of iterative reconstruction technique. FINDINGS: VERTEBRAE: No acute displaced - anterior wedge compression fractures nor retropulsed fragments. . Minor chronic appearing anterior stature loss of the C5 and C6 segments felt to be degenerative in origin. Vertebral bodies otherwise exhibit normal stature. Minor straightening of the normal cervical lordosis however the vertebral bodies otherwise exhibit normal alignment. Facets normally aligned. DISCS/SPINAL CANAL/NEURAL FORAMINA: Degenerative spondylosis seen at several levels. At the C5-C6 level, there is disc space narrowing with small irregular osteophytic ridge disc disc bulge complex contiguous with hypertrophic uncovertebral joints. . Changes result in [id number] central canal stenosis and presumed cord compression. Facet joints are slightly prominent with slight bilateral foraminal narrowing. At the C6-C7 level, disc space height is relatively maintained. Small marginal anterior osteophyte formation. No large disc herniation. Minimal degenerative squaring of the uncovertebral joints. Central canal exit foramina appear adequate so far as can be seen. At the C4-C5 level, there is minor anterior disc space narrowing. No disc herniation or significant disc bulge. Minimal degenerative squaring of the uncovertebral joints. Facets also slightly overgrown. Exit foramina are slightly narrowed bilaterally. At the C3-C4 level, there is also minor anterior disc space narrowing. Minimal degenerative squaring of the uncovertebral joints. Facets are also slightly overgrown. Central canal appears adequate. Exit foramina appear marginal to adequate. PARASPINAL SOFT TISSUES: Unremarkable. OTHER FINDINGS: Thyroid gland is slightly heterogeneous in appearance likely due to crossing streak and beam hardening artifact arising from dense shoulder clavicles and shoulder girdles. IMPRESSION: No acute fractures. Minor degenerative spondylosis most notably affecting C5-C6 level as described.
--- NOTE | 2017-07-23 11:35 | RAD ---
PROCEDURE: Right hand dated 07/23/2017 HISTORY: Status post fall with right hand pain COMPARISON: Correlation made with concurrent radiographs of the right wrist. FINDINGS: BONES: No evidence of acute displaced fracture nor dislocation. The osseous structures appear intact. JOINTS: Normal. No osteoarthritic changes. SOFT TISSUES: Normal. OTHER FINDINGS: None. IMPRESSION: No evidence of acute displaced fracture nor dislocation.
--- NOTE | 2017-07-23 11:36 | RAD ---
PROCEDURE: Right wrist dated 07/23/2017 HISTORY: fall R wrist pain COMPARISON: Correlation made with concurrent radiographs of the right hand. FINDINGS: BONES: No evidence of displaced fracture nor dislocation. JOINTS: Normal. No dislocation. SOFT TISSUES: Normal. OTHER FINDINGS: None. IMPRESSION: Normal right wrist radiographs.
--- NOTE | 2017-07-23 11:37 | RAD ---
PROCEDURE: Right Ankle Radiographs. HISTORY: fall R ankle pain COMPARISON: Comparison made with radiographs right ankle dated 08/09/2009 FINDINGS: BONES: Normal. No fracture. JOINTS: Normal. No osteoarthritis. Ankle mortise maintained. Talar dome intact SOFT TISSUES: Normal. OTHER FINDINGS: None. IMPRESSION: Normal right ankle radiographs.
--- NOTE | 2017-07-23 11:38 | RAD ---
PROCEDURE: Right knee dated 07/23/2017 HISTORY: fall COMPARISON: Comparison made with radiographs right knee dated 11/24/2014. FINDINGS: BONES: Normal. No fracture. JOINTS: Normal. No osteoarthritis. Small anterior superior patella enthesophyte. JOINT EFFUSION: None. OTHER FINDINGS: None. IMPRESSION: No evidence of acute displaced fracture nor dislocation.
--- NOTE | 2017-07-23 11:42 | RAD ---
PROCEDURE: Right hip HISTORY: fall R hip pain COMPARISON: Comparison made with CT scan abdomen pelvis 02/04/2016 which image the pelvis and right hip in 3 planes. TECHNIQUE: AP view of the pelvis and frog-leg lateral view of the right hip FINDINGS: No evidence of acute displaced fracture nor dislocation. The osseous structures intact so far as can be seen. Slight irregularity along the inferior and medial margins of both pubic rami on felt to represent an anatomic variation IMPRESSION: No evidence of acute displaced fracture nor dislocation.
--- NOTE | 2017-07-23 11:42 | RAD ---
PROCEDURE: Radiographs of the Right Shoulder HISTORY: fall R shoulder pain COMPARISON: Comparison made with prior radiograph right shoulder dated 03/13/2016. FINDINGS: BONES: Normal. No fracture. JOINTS: Normal. Glenohumeral and acromioclavicular joints preserved. No osteoarthritis. SOFT TISSUES: Normal. OTHER FINDINGS: None. IMPRESSION: Normal radiographs of the right shoulder.
--- NOTE | 2017-07-23 13:56 | CT ---
PROCEDURE: CT of the Right Hip. HISTORY: R hip pain s/p fall COMPARISON: None available. TECHNIQUE: Contiguous axial images of the right hip were obtained. Coronal and sagittal reformats were generated. This CT exam was performed using one or more of the following dose reduction techniques: Automated exposure control, adjustment of the mA and/or kV according to patient size, and/or use of iterative reconstruction technique. Radiation dose: Total DLP = 544.90 mGy-cm. FINDINGS: BONES: Unremarkable. No fracture or focal lesion. Femoral head maintains normal contour. RIGHT HIP JOINT: Right hip is appropriately located within the right acetabulum No significant degenerative osteoarthritis. SOFT TISSUES: Unremarkable. IMPRESSION: No evidence of acute displaced fracture nor dislocation.
--- NOTE | 2017-07-23 15:19 | RAD ---
PROCEDURE: Chest and right ribs dated 07/23/2017 HISTORY: fall R rib pain COMPARISON: Comparison made with chest radiograph 05/13/2017. . TECHNIQUE: Frontal radiograph of the chest and multiple oblique radiographs of the right ribs were obtained. FINDINGS: RIGHT RIBS: No fracture or focal lesion visualized. LUNGS: Cardiomediastinal silhouette normal in size and position. Lung mcnulty clear without focal consolidation or effusion. No evidence of pneumothorax. PLEURA: No pneumothorax or pleural fluid. CARDIOVASCULAR: Normal sized heart. No pulmonary vascular congestion. OTHER FINDINGS: None. IMPRESSION: No evidence of acute cardiopulmonary disease. No definitive radiographic evidence of acute displaced right-sided rib fracture.
[2017-07-23 16:54] VITALS: BP 140/82; PULSE 94
== END 2017-07-23 14:40 | disposition home or self-care (01) ==
LOC: H.ER 08:16
DX: S70.01XA Contusion of right hip, initial encounter (principal); S09.90XA Unspecified injury of head, initial encounter; S16.1XXA Strain of muscle, fascia and tendon at neck level, initial encounter; S20.219A Contusion of unspecified front wall of thorax, initial encounter; S89.90XA Unspecified injury of unspecified lower leg, initial encounter; S63.91XA Sprain of unspecified part of right wrist and hand, initial encounter; E11.9 Type 2 diabetes mellitus without complications; Z79.84 Long term (current) use of oral hypoglycemic drugs; Z87.891 Personal history of nicotine dependence; W00.0XXA Fall on same level due to ice and snow, initial encounter
CPT/HCPCS: 29125; 70450; 71101; 72125; 73030; 73110; 73130; 73502; 73562; 73610; 73700; 81025; 96372; 99283; J1885